=== PATIENT | male | born 1990 | race Caucasian/White ===

== ENCOUNTER 2017-09-09 20:57 | Inpatient (IN) | payer OTHER ==
[2017-09-09] MEDS ORDERED: ACETAMINOPHEN 500 MG TABLET (FP) PO STA (23:32)
--- NOTE | 2017-09-09 23:44 | PDOC ---
History of Present Illness - General Chief Complaint: Edema Stated Complaint: FOOT PAIN Time Seen by Provider: 09/09/17 23:26 - History of Present Illness Initial Comments: 09/09/17 23:45 Mr. Nubia Brewer is a 26 yo male w/ no pmh who presents c/o a 1 week history of right foot pain. He reports he was evaluated at [facility] earlier today and given PO Cephalexin 500 Q4H, but returned to ED as brother encouraged him to do so. He reports he has pain up to his right knee and altered sensation on the right lower leg as well. He also reports intermittent high fevers. Mr. 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 He further reports his brother incised the foot at 1700 this evening after betadine and alcohol prep with a scalpel in an effort to alleviate pain/pressure. Yellow pus came out at this time. The patient denies chest pain, shortness of breath, headache and dizziness. Denies chills, nausea, vomit, diarrhea and constipation. Denies dysuria, frequency, urgency and hematuria. Allergies: NKDA Past History - Past Medical History Allergies/Adverse Reactions: Allergies Allergy/AdvReac Type Severity Reaction Status Date / Time No Known Allergies Allergy Verified 09/09/17 21:11 Home Medications: Ambulatory Orders Vancomycin 1,500 mg IVPB BID@0900,2100 vial 09/17/17 - Suicide/Smoking/Psychosocial Hx Smoking History: Never smoked Have you smoked in the past 12 months: No Information on smoking cessation initiated: No Hx Alcohol Use: No Drug/Substance Use Hx: No Review of Systems - Review of Systems Comments:: 09/09/17 23:53 GENERAL/CONSTITUTIONAL: No fever or chills. No weakness. HEAD, EYES, EARS, NOSE AND THROAT: No change in vision. No ear pain or discharge. No sore throat. CARDIOVASCULAR: No chest pain or shortness of breath RESPIRATORY: No cough, wheezing, or hemoptysis. GASTROINTESTINAL: No nausea, vomiting, diarrhea or constipation. GENITOURINARY: No dysuria, frequency, or change in urination. MUSCULOSKELETAL: +Right lower extremity redness, pain, warmth, tense skin, and decreased sensation x1 week. SKIN: No rash NEUROLOGIC: No headache, vertigo, loss of consciousness, or change in strength/ sensation. ENDOCRINE: No increased thirst. No abnormal weight change HEMATOLOGIC/LYMPHATIC: No anemia, easy bleeding, or history of blood clots. ALLERGIC/IMMUNOLOGIC: No hives or skin allergy. *Physical Exam - Vital Signs Last Vital Signs Temp Pulse Resp BP Pulse Ox 101.9 F H 118 H 20 154/82 100 09/09/17 21:11 09/09/17 21:11 09/09/17 21:11 09/09/17 21:11 09/09/17 21:11 - Physical Exam Comments: 09/09/17 23:54 GENERAL: Awake, alert, and fully oriented, in no acute distress HEAD: No signs of trauma, normocephalic, atraumatic EYES: PERRLA, EOMI, sclera anicteric, conjunctiva clear ENT: Auricles normal inspection, hearing grossly normal, nares patent, oropharynx clear without exudates. Moist mucosa NECK: Normal ROM, supple, no lymphadenopathy, JVD, or masses LUNGS: No distress, speaks full sentences, clear to auscultation bilaterally HEART: Regular rate and rhythm, normal S1 and S2, no murmurs, rubs or gallops, peripheral pulses normal and equal bilaterally. ABDOMEN: Soft, nontender, normoactive bowel sounds. No guarding, no rebound. No masses EXTREMITIES: +Right lower extremity erythematous, hot, swollen, with decreased sensation on until knee. NEUROLOGICAL: Cranial nerves II through XII grossly intact. Normal speech, normal gait, no focal sensorimotor deficits SKIN: +As described, otherwise Warm, Dry, normal turgor, no rashes or lesions noted. ED Treatment Course - LABORATORY CBC & Chemistry Diagram: 09/14/17 06:45 09/17/17 06:35 Medical Decision Making - Medical Decision Making 09/09/17 23:56 Mr. Delacruz is a 26 yo male w/ no pmh who presents for evaluation of right foot infection. With elevated temperature and pulse, septic workup started. Inpatient team made aware early on as patient likely will be admitted for further workup. Patient signed out to Dr. Cohn for further care. *DC/Admit/Observation/Transfer Diagnosis at time of Disposition: Cellulitis of foot - Discharge Dispostion Disposition: HOME Condition at time of disposition: Stable - Referrals - Patient Instructions - Post Discharge Activity
[2017-09-09] MEDS ORDERED: SODIUM CHLORIDE 2,000 ML IV STA (23:45)
[2017-09-09] MEDS ORDERED: PIPERACILLIN/TAZOB 3.375 GM 3.375 GM in DEXTROSE 5%-WATER - 50 ML IVPB ONE (23:46)
[2017-09-09] MEDS ORDERED: VANCOMYCIN 1,000 MG in DEXTROSE 5%-WATER - 250 ML IVPB ONE (23:46)
[2017-09-09] MEDS ORDERED: DIPHTH,PERTUSS(ACELL),TET 0.5 ML DISP.SYRIN IM ONE (23:47)
[2017-09-10] MEDS ORDERED: CLINDAMYCIN 900 MG PREMIX IVPB 900 MG/50 ML BAG IVPB ONE ×2 (00:05→01:36)
[2017-09-10 00:08] LABS: BASO % 0.5 % (0-2.0); EOS % 3.2 % (0-4.5); HEMATOCRIT 36.2 % (35.4-49); HEMOGLOBIN 12.4 GM/dL (11.7-16.9); LYMPH % 7.8 % (8-40); MCH 30.7 pg (25.7-33.7); MCHC 34.1 g/dl (32.0-35.9); MEAN CELL VOLUME 89.9 fl (80-96); MEAN PLT VOLUME 7.6 fl (7.5-11.1); NEUT % 82.5 % (42.8-82.8); PLATELET COUNT 310 K/MM3 (134-434); RBC 4.03 M/mm3 (4.00-5.60); RDW 13.8 % (11.9-15.9); WHITE BLOOD COUNT 15.9 K/mm3 (4.0-10.0)
--- NOTE | 2017-09-10 00:14 | PDOC ---
Attending Attestation - HPI HPI: 09/10/17 00:15 The patient is a 26 year old male with no known significant PMH who presents to the emergency department with right foot pain for the past week. The patient states he went to [facility] earlier today and was sent home on PO Cephalexin 500 every 4 hours, but came to this ER due to persistent right foot pain. The patient presents with fever TMax 101.9 and swelling to the right foot. The patient endorses pain and decreased sensation up to his right knee. The patient also reports his brother made an incision to the right foot with a scalpel to alleviate some of the pain and yellow drainage was noted. The patient reports no trauma to the right foot. The patient denies chest pain, shortness of breath, headache and dizziness. Denies fever, chills, nausea, vomit, diarrhea and constipation. Denies dysuria, frequency, urgency and hematuria. Allergies: NKA Past surgical history: None reported. Social history: No reported reported alcohol, drug, or cigarette use. - Physicial Exam PE: 09/10/17 00:14 GENERAL: Awake, alert, and fully oriented, in no acute distress HEAD: No signs of trauma, normocephalic, atraumatic EYES: PERRLA, EOMI, sclera anicteric, conjunctiva clear ENT: Auricles normal inspection, hearing grossly normal, nares patent, oropharynx clear without exudates. Moist mucosa NECK: Normal ROM, supple, no lymphadenopathy, JVD, or masses LUNGS: No distress, speaks full sentences, clear to auscultation bilaterally HEART: (+) Tachycardic and regular rhythm, normal S1 and S2, no murmurs, rubs or gallops, peripheral pulses normal and equal bilaterally. ABDOMEN: Soft, nontender, normoactive bowel sounds. No guarding, no rebound. No masses EXTREMITIES: (+) Right lower extremity erythematous, hot, swollen, with decreased sensation up to the knee. NEUROLOGICAL: Cranial nerves II through XII grossly intact. Normal speech, normal gait, no focal sensorimotor deficits SKIN: +As described, otherwise Warm, Dry, normal turgor, no rashes or lesions noted. <Annmarie Flowers - Last Filed: 09/10/17 00:15> - Resident Resident Name: Quinn Mansfield - ED Attending Attestation I have performed the following: I have examined & evaluated the patient, The case was reviewed & discussed with the resident, I agree w/resident's findings & plan, Exceptions are as noted - Medical Decision Making 09/10/17 01:44 IMP rt foot cellulitis/admitted for IV antibiotics ,possible surgical consult and further evaluation <Terri Muse - Last Filed: 09/10/17 01:45>
[2017-09-10 00:15] LABS: VENOUS PC02 42.9 mmHg (38-52); VENOUS PH 7.41 (7.32-7.42); VENOUS PO2 40.5 mmHg (28-48)
[2017-09-10 00:22] LABS: INR 1.35 (0.82-1.09); PROTHROMBIN TIME (PATIENT) 15.3 SEC (9.98-11.88)
[2017-09-10 00:25] LABS: ACTIVATED PTT 34.7 SECONDS (26.9-34.4)
[2017-09-10 00:37] LABS: ALBUMIN 3.7 g/dl (3.4-5.0); ALK PHOS 87 U/L (45-117); ANION GAP 8 (8-16); BILIRUBIN,TOTAL 0.7 mg/dL (0.2-1.0); BLOOD UREA NITROGEN 8 mg/dL (7-18); CALCIUM 8.6 mg/dL (8.5-10.1); CHLORIDE 104 mmol/L (98-107); CO2 25 mmol/L (21-32); GLUCOSE,RANDOM 109 mg/dL (74-106); POTASSIUM 3.9 mmol/L (3.5-5.1); SGOT/AST 18 U/L (15-37); SGPT/ALT 24 U/L (12-78); SODIUM 137 mmol/L (136-145); TOT PROT 7.4 g/dl (6.4-8.2)
--- NOTE | 2017-09-10 00:39 | PN ---
Teaching Attending Note Name of Resident: Dc Taylor ATTENDING PHYSICIAN STATEMENT I saw and evaluated the patient. I reviewed the resident's note and discussed the case with the resident. I agree with the resident's findings and plan as documented. SUBJECTIVE: 26 yo M with no pmhx (has not seen physician in 6 years), presents with Right foot pain and swelling. Notes he was seen at [facility] and sent home PO Cephalexin. States he presented to [place] with continued pain. States he was working near [place] and cut his foot, he noticed "bubbles" near the bottom of his foot and his brother opened them with a scalpel. He noticed continued erythema, edema, and pain since that day, States he has had fevers at home and chills. No chest pain or pressure. He also noted pain has been going up his leg and he has noticed a enlarged LN on his R. inguinal area. OBJECTIVE: Physical: VS: Initial Vital Signs Temp Pulse Resp BP Pulse Ox 101.9 F H 118 H 20 154/82 100 09/09/17 21:11 09/09/17 21:11 09/09/17 21:11 09/09/17 21:11 09/09/17 21:11 GEN: NAD, Resting in bed, AA0X3 HEENT: NCAT, PERRL, throat without erythema or exudates CARD: RRR S1, S2 RESP: CTAB ABD: BSx4, NTD to palpation EXT: R foot Erythmatous and Edematous, Pulses intact, No air/crepitus, [address], L Leg - C/C/E, UE -C/C/E CBCD WBC 15.9 K/mm3 (4.0-10.0) H 09/09/17 22:49 RBC 4.03 M/mm3 (4.00-5.60) 09/09/17 22:49 Hgb 12.4 GM/dL (11.7-16.9) 09/09/17 22:49 Hct 36.2 % (35.4-49) 09/09/17 22:49 MCV 89.9 fl (80-96) 09/09/17 22:49 MCHC 34.1 g/dl (32.0-35.9) 09/09/17 22:49 RDW 13.8 % (11.9-15.9) 09/09/17 22:49 Plt Count 310 K/MM3 (134-434) 09/09/17 22:49 MPV 7.6 fl (7.5-11.1) 09/09/17 22:49 CMP Sodium 137 mmol/L (136-145) 09/09/17 22:49 Potassium 3.9 mmol/L (3.5-5.1) 09/09/17 22:49 Chloride 104 mmol/L (98-107) 09/09/17 22:49 Carbon Dioxide 25 mmol/L (21-32) 09/09/17 22:49 Anion Gap 8 (8-16) 09/09/17 22:49 BUN 8 mg/dL (7-18) 09/09/17 22:49 Creatinine 1.0 mg/dL (0.7-1.3) 09/09/17 22:49 Creat Clearance w eGFR > 60 (>60) 09/09/17 22:49 Random Glucose 109 mg/dL (74-106) H 09/09/17 22:49 Calcium 8.6 mg/dL (8.5-10.1) 09/09/17 22:49 Total Bilirubin 0.7 mg/dL (0.2-1.0) 09/09/17 22:49 AST 18 U/L (15-37) 09/09/17 22:49 ALT 24 U/L (12-78) 09/09/17 22:49 Alkaline Phosphatase 87 U/L (45-117) 09/09/17 22:49 Total Protein 7.4 g/dl (6.4-8.2) 09/09/17 22:49 Albumin 3.7 g/dl (3.4-5.0) 09/09/17 22:49 CARDIAC ENZYMES Troponin I < 0.02 ng/ml (0.00-0.05) 09/09/17 22:49 CT- No air/Abscess cellulitis ASSESSMENT AND PLAN: 26 yo M with no pmhx presents with Right foot pain and swelling after injury 1.) Sepsis due to Severe Cellulitis - [place] Cx - Repeat LA - IVF - Vanco/Zosyn - ID consult - Sx. Consult - ESR/CRP as above - LRNIC 5 - Needs US of inguinal node 2.) Dvt Ppx - [facility] in [facility]
--- NOTE | 2017-09-10 01:33 | HP ---
CHIEF COMPLAINT: R foot pain PCP: None HISTORY OF PRESENT ILLNESS: 26yo Mauritanian speaking M presented to the ER w/ 1 week of gradually worsening R foot pain, erythema, and swelling. He works for a [employer] company and cut his foot at work last week. At work, he constantly walks with wet shoes/socks and neglects foot care at home. He noticed red dots w/ pustules, which he manually popped. For the past 2 days, endorses fevers, chills, loss of appetite, n/v. Also felt an enlarged lymph node in R groin. His brother at one point took a scalpel and incised the medial plantar aspect, and it drained some serosanguinous fluid. He went to [facility] ER but left AMA. Came here after being convinced by girlfriend. In the ER, the patient was febrile to Tm 101.9 and tachy to the 110s. Sepsis protocol was initiated. Labs were notable for significant leukocytosis w/o lactic acid, and elevated ESR/CRP. CT of RLE showed suspected cellulitis w/o abscess. RLE duplex is negative. Tetanus shot given. Recent Travel: Denies PAST MEDICAL HISTORY: None, hasn't seen physician in 6 years PAST SURGICAL HISTORY: None Social History: Smoking: Denies Alcohol: Deines Drugs: Denies Allergies: No Known Allergies Allergy (Verified 09/09/17 21:11) HOME MEDICATIONS: None REVIEW OF SYSTEMS CONSTITUTIONAL: +fevers, chills, malaise, DEJON Absent: weight change HEENT: Absent: rhinorrhea, nasal congestion, throat pain, throat swelling, difficulty swallowing, mouth swelling, ear pain, eye pain, visual changes CARDIOVASCULAR: Absent: chest pain, syncope, palpitations, irregular heart rate , lightheadedness, peripheral edema RESPIRATORY: Absent: cough, shortness of breath, dyspnea with exertion, orthopnea, wheezing, stridor, hemoptysis GASTROINTESTINAL:Absent: abdominal pain, abdominal distension, nausea, vomiting , diarrhea, constipation, melena, hematochezia GENITOURINARY: Absent: dysuria, frequency, urgency, hesitancy, hematuria, flank pain, genital pain MUSCULOSKELETAL: +myalgia, arthralgia Absent: joint swelling, back pain, neck pain SKIN: Absent: rash, itching, pallor HEMATOLOGIC/IMMUNOLOGIC: Absent: easy bleeding, easy bruising, lymphadenopathy, frequent infections ENDOCRINE:Absent: unexplained weight gain, unexplained weight loss, heat intolerance, cold intolerance NEUROLOGIC: Absent: headache, focal weakness or paresthesias, dizziness, unsteady gait, seizure, mental status changes, bladder or bowel incontinence PSYCHIATRIC: Absent: anxiety, depression, suicidal or homicidal ideation, hallucinations. PHYSICAL EXAMINATION Vital Signs Period Temp Pulse Resp BP Sys/Malagon Pulse Ox Last 24 Hr 101.9 F 118 20 154/82 100 GEN: AAOx3, NAD, Not ill appearing HEENT: PERRla, EOMi CV: S1, S2, RRR LUNG: CTABL ABD: Soft, NT, ND, normoactive BS MSK: R foot - Significant erythema, warmth, and pedal edema. No crepitus. Serosanguinous drainage from medial plantar incision. Exquisitely tender throughout. No calf tenderness. Pulses intact L foot - Normal apperaing : Moderately sized tough lymph node in R inguinal area NEURO: CN 2-12 intact, no sensation or msk deficits ASSESSMENT/PLAN: 26yo Mauritanian speaking M presented to the ER w/ 1 week of gradually worsening R foot pain, erythema, and swelling, being treated for sepsis 2/2 cellulitis. # Sepsis 2/2 RLE Cellulitis -- Likely obtained from direct innoculation from cut at work. Though there is no abscess on CT, will request gen surg opinion. IV Vanc/Zosyn with ID consult. IVF. F/u Bcx. MRI due to ESR/CRP. # FEN/PPx -- IVF 100. Reg diet. HSQ TID # Dispo -- Admit to med/surg Case d/w Dr Briones & Dr Renetta Taylor MD - pGY1 Night Charge Entry Visit type - Emergency Visit Emergency Visit: Yes ED Registration Date: 09/10/17 Care time: The patient presented to the Emergency Department on the above date and was hospitalized for further evaluation of their emergent condition. - New Patient This patient is new to me today: Yes Date on this admission: 09/10/17 - Critical Care Critical Care patient: No Hospitalist Screening - Colonoscopy Questionnaire Colonoscopy Questionnaire: Colonoscopy Questionnaire - Patient: 50 - 75 years old and never had a screening colonoscopy: Unknown History of colon or rectal polyps, or CA: Unknown History of IBD, Crohn's disease or UC: Unknown History of abdominal radiation therapy as a child: Unknown - Relative: 1 with colon or rectal CA, or polyps at age 60 or younger: Unknown Colon or rectal CA diagnosed at age 45 or younger: Unknown Multiple relatives with colon or rectal CA: Unknown - Outcome: Screening Result: Negative Screen
[2017-09-10] MEDS ORDERED: ACETAMINOPHEN 325 MG TABLET (FP) ONE (01:35)
[2017-09-10] MEDS ORDERED: PIPERACILLIN/TAZOB 3.375 GM 3.375 GM/50 ML BAG IVPB ONE (01:36)
[2017-09-10] MEDS ORDERED: morphine SULFATE 4 MG/ML VIAL IVPUSH PRN ×2 (01:55→11:15)
[2017-09-10 02:04] LABS: URINE APPEARANCE CLEAR; URINE BILIRUBIN NEGATIVE (<2.0 mg/dL); URINE COLOR LTYELLOW; URINE GLUCOSE (UA) NEGATIVE (NEGATIVE); URINE KETONE NEGATIVE (NEGATIVE); URINE LEUK ESTERASE NEGATIVE (NEGATIVE); URINE NITRITE NEGATIVE (NEGATIVE); URINE PROTEIN NEGATIVE (NEGATIVE)
[2017-09-10] MEDS ORDERED: CLINDAMYCIN 900 MG PREMIX IVPB 900 MG/50 ML BAG IVPB SCH ×2 (03:00→06:00)
[2017-09-10] MEDS: SODIUM CHLORIDE 1,000 ML IV SCH ×2 (04:32→14:22)
[2017-09-10] MEDS: HEPARIN NA (PORCINE) 5,000 UNITS/ML 1ML VIAL SQ SCH ×3 (05:32→22:29)
[2017-09-10 05:47] VITALS: BMI 30.9
[2017-09-10 07:07] LABS: HEMATOCRIT 35.8 % (35.4-49); MCH 30.5 pg (25.7-33.7); MCHC 33.5 g/dl (32.0-35.9); MEAN CELL VOLUME 91.2 fl (80-96); MEAN PLT VOLUME 7.2 fl (7.5-11.1); PLATELET COUNT 286 K/MM3 (134-434); RBC 3.93 M/mm3 (4.00-5.60); RDW 13.6 % (11.9-15.9); WHITE BLOOD COUNT 14.8 K/mm3 (4.0-10.0)
[2017-09-10 07:32] LABS: ALBUMIN 3.1 g/dl (3.4-5.0); ANION GAP 5 (8-16); BLOOD UREA NITROGEN 6 mg/dL (7-18); CALCIUM 7.7 mg/dL (8.5-10.1); CHLORIDE 108 mmol/L (98-107); CO2 26 mmol/L (21-32); CREATININE 0.8 mg/dL (0.7-1.3); GLUCOSE,RANDOM 104 mg/dL (74-106); MAGNESIUM 2.4 mg/dL (1.8-2.4); PHOSPHOROUS 2.8 mg/dL (2.5-4.9); POTASSIUM 3.6 mmol/L (3.5-5.1); SGOT/AST 15 U/L (15-37); SGPT/ALT 21 U/L (12-78); SODIUM 139 mmol/L (136-145)
[2017-09-10 07:34] LABS: ALK PHOS 78 U/L (45-117); BILIRUBIN,TOTAL 0.7 mg/dL (0.2-1.0); TOT PROT 6.6 g/dl (6.4-8.2)
--- NOTE | 2017-09-10 08:08 | PN ---
Progress Note (short form) - Note Progress Note: ID THis 26 year old [place] man living in [place] for six years presents with diffuse swelling of the right foot pain redness began last week. Starated as 2 pimples on the bottom of his foot. He denies any recall of trauma. 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 pets or history of DM or other medical illness His brother attempted to drain the plantar aspect of this foot with pus obtained. Selected Entries 09/09/17 21:11 Temperature 101.9 F H Pulse Rate 118 H Respiratory 20 Rate Blood Pressure 154/82 O2 Sat by Pulse 100 Oximetry (%) Weight 200 lb Right foot diffusely swollen and red. Bottom of his foot is very tender. Linear opening noted with pus Microbiology Laboratory Tests 09/09/17 09/09/17 09/09/17 22:49 22:49 22:49 WBC 15.9 H Hgb 12.4 Plt Count 310 ESR 58 H Total Bilirubin 0.7 AST 18 ALT 24 Alkaline Phosphatase 87 C-Reactive Protein 09/09/17 23:45 WBC Hgb Plt Count ESR Total Bilirubin AST ALT Alkaline Phosphatase C-Reactive Protein 20.9 H Assessment Suspect underlyng abscess right foot with secondary cellulitis along with fever and leukocytosis Criteria for sepsis GIven grassy outdoor exposure consider water born organisms in addition to usual staph and strep. Plan Discussed with Dr Aldana regarding need for I&D OR Vancomycin and Zosyn 1.25 grs and 4.5 grs respectively HIV test Sam GALEANA Problem List - Problems (1) Cellulitis of foot Code(s): L03.119 - CELLULITIS OF UNSPECIFIED PART OF LIMB (2) Foot abscess Code(s): L02.619 - CUTANEOUS ABSCESS OF UNSPECIFIED FOOT
[2017-09-10] MEDS ORDERED: PIPERACILLIN/TAZOBACTAM 4.5 GM VIAL IVPB ONE ×2 (09:10→17:52)
[2017-09-10] MEDS ORDERED: DEXTROSE 5%-WATER 100 ML IVPB ONE ×2 (09:10→17:53)
[2017-09-10] MEDS: PIPERACILLIN/TAZOB 4.5 GM 4.5 GM in DEXTROSE 5%-WATER 100 ML IVPB SCH ×2 (09:13→17:58)
[2017-09-10] MEDS ORDERED: PIPERACILLIN/TAZOB 3.375 GM 3.375 GM in DEXTROSE 5%-WATER - 50 ML IVPB ONE (10:00)
[2017-09-10] MEDS ORDERED: FLU VACCINE QUAD 60 MCG/0.5 ML (MDV 17-18) IM ONE (11:00)
--- NOTE | 2017-09-10 11:00 | CONSULT ---
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 Patient notes trauma to the right foot when a sprinkler cut his foot. His brother also used a scalpel to "clean out the area". He currently has low grade temp to 99 F. PMHx: denies Meds: noted ALL: NKMA NADIYA: Pedal pulses palpable, TG warm-warmer R foot, CFT brisk to all toes. There is a transverse self-created wound on the plantar sub-metatarsal region, extending from 1st-3rd metatarsals. There is purulent drainage expressed from the sub- first metatarsal area. There is exquisite tenderness to palpation. There is significant edema and cellulitis to the forefoot both dorsally and plantarly. There is no soft tissue crepitus. WBC: 14.8 ESR: 58 Blood Cx: pending CT R foot: subcutaneous edema without evidence of collection Imp: 26 year old M with R foot cellulitis, suspected abscess 1. IV abx 2. We need further imaging, such as xray right foot to evaluate for subcutaneous emphysema and MRI with contrast to get a better picture of abscess collection. 3. Clearly needs I&D R foot. NPO at midnight for surgery tomorrow afternoon. 4. Pain control. 5. Will follow. Thank you for the courtesy of this consultation. Arnulfo Prince DPM
--- NOTE | 2017-09-10 11:05 | EKG ---
Test Reason : Blood Pressure : / mmHG Vent. Rate : 106 BPM Atrial Rate : 106 BPM P-R Int : 130 ms QRS Dur : 086 ms QT Int : 338 ms P-R-T Axes : 060 048 008 degrees QTc Int : 448 ms SINUS TACHYCARDIA OTHERWISE NORMAL ECG NO PREVIOUS ECGS AVAILABLE Confirmed by ANABELLA FRAGA MD ([id number]) on 09/10/2017 11:04:51 AM Referred By: Confirmed By:ANABELLA FRAGA MD
--- NOTE | 2017-09-10 12:27 | PN ---
Teaching Attending Note Name of Resident: Dana Haywood ATTENDING PHYSICIAN STATEMENT I saw and evaluated the patient. I reviewed the resident's note and discussed the case with the resident. I agree with the resident's findings and plan as documented. SUBJECTIVE:c/o R foot pain which improves with pain medication. noted swelling on Sunday. his brother used a knife to incise base to remove eschar. deneis Cp,SOB< fever, chills, N/V/C/D OBJECTIVE: Last Vital Signs Temp Pulse Resp BP Pulse Ox 99 F 88 16 139/76 96 09/10/17 09:06 09/10/17 09:06 09/10/17 09:06 09/10/17 09:06 09/10/17 01:13 General NAD CV S1 S2 RRR no murmur/rub/gallop Lungs CTA B/L no wheezing/rales/rhonchi Abdomen soft NT/ND Extremities R foot with swelling and erythema to dorsum of foot. unable to palpate DP pulse. laceration with some pus drainage in between 1st and 2nd digit plantar of the foot with transverse laceration with pus drainage from superior aspect. area is tender and warm with diffuse swelling to the plantar region. no crepitus ASSESSMENT AND PLAN: 26yo M with no PMH presented to the ER with R foot swelling and pain 1. Sepsis due to R foot cellulitis- with possible abscess formation. CT scan not showing however was done without contrast. will obtain MRI with contrast to further evaluate and r/o OM. NPO tonight for possible OR tomorrow for I&D. on Vanco/zosyn day 2. pain control. ID, surgery and podiatry on board. check HIV status (pt consents). A1c WNL, Tdap given in the ER 2. DVT ppx- hep sq
[2017-09-10] MEDS ORDERED: VANCOMYCIN 1,500 MG in DEXTROSE 5%-WATER - 500 ML IVPB ONE (16:00)
--- NOTE | 2017-09-10 16:34 | PN ---
Physical Exam: SUBJECTIVE: Patient seen and examined. States pain well controlled with medication; no fever, chills, n/v, chest pain, sob. OBJECTIVE: Vital Signs Period Temp Pulse Resp BP Sys/Malagon Pulse Ox Last 24 Hr 97.9 F-101.9 F 77-118 16-20 125-154/55-82 96-100 GENERAL: aaox3, nad HEENT:sclera anicteric, conjunctiva clear, mmm NECK: supple, no cervical LAD LUNGS: CTAB HEART: rrr, normal s1/s2, no m/r/g EXTREMITIES: R foot dorsum swollen, erythematous, warm, ttp; horizontal transverse incision on plantar aspect with pus draining; PT pulse palpated; L foot 2+ DP/PT pulses, wwp CBC, BMP 09/10/17 05:50 09/10/17 05:50 Hepatic Panel Total Bilirubin 0.7 mg/dL (0.2-1.0) 09/10/17 05:50 AST 15 U/L (15-37) 09/10/17 05:50 ALT 21 U/L (12-78) 09/10/17 05:50 Alkaline Phosphatase 78 U/L (45-117) 09/10/17 05:50 Albumin 3.1 g/dl (3.4-5.0) L 09/10/17 05:50 Active Medications Heparin Sodium (Porcine) (Heparin -) 5,000 unit SQ TID ENEDINA Last Admin: 09/10/17 14:21 Dose: 5,000 unit Sodium Chloride (Normal Saline -) 1,000 mls @ 125 mls/hr IV [facility] Last Admin: 09/10/17 14:22 Dose: 125 mls/hr Vancomycin HCl 1,250 mg/ (Dextrose) 250 mls @ 166.667 mls/hr IVPB 0400,1600 ENEDINA PRN Reason: Protocol Last Admin: 09/10/17 16:38 Dose: 166.667 mls/hr Piperacillin Sod/Tazobactam (Sod 4.5 gm/ Dextrose) 100 mls @ 200 mls/hr IVPB Q8H-IV ENEDINA PRN Reason: Protocol Last Admin: 09/10/17 17:58 Dose: 200 mls/hr Morphine Sulfate (Morphine Sulfate) 4 mg IVPUSH Q6H PRN PRN Reason: PAIN LEVEL 6-10 Last Admin: 09/10/17 14:22 Dose: 4 mg ASSESSMENT/PLAN: 26yo Estonian speaking M who p/w 1xwk worsening R foot pain, erythema, and swelling, admitted for sepsis 2/2 cellulitis. # Sepsis 2/2 RLE cellulitis, possibly osteomyelitis, likely from occupation; s/ p Tdap in ED, Alc wnl (5.4%) -ID consulted, c/w IV Vanc/Zosyn, Day 2 -IVF -F/u BCx -MRI to r/o osteo (elevated ESR/CRP); assess for drainable collection -General surgery consulted -Dr. Prince (podiatry) consulted, make take to OR tomorrow for I&D -f/u HIV (patient consented) -pain control morpine 4mg IV Q6H # FEN/PPx --IVF 100. Reg diet. HSQ TID #Dispo: m/s Full code Visit type - Emergency Visit Emergency Visit: No - New Patient This patient is new to me today: Yes Date on this admission: 09/10/17 - Critical Care Critical Care patient: No
[2017-09-10] MEDS: VANCOMYCIN 1,250 MG in DEXTROSE 5%-WATER - 250 ML IVPB SCH (16:38)
[2017-09-11] MEDS ORDERED: PIPERACILLIN/TAZOBACTAM 4.5 GM VIAL IVPB ONE ×3 (01:03→18:32)
[2017-09-11] MEDS ORDERED: DEXTROSE 5%-WATER 100 ML IVPB ONE ×3 (01:03→18:33)
[2017-09-11] MEDS: PIPERACILLIN/TAZOB 4.5 GM 4.5 GM in DEXTROSE 5%-WATER 100 ML IVPB SCH ×3 (01:05→18:38)
[2017-09-11] MEDS: VANCOMYCIN 1,250 MG in DEXTROSE 5%-WATER - 250 ML IVPB SCH ×2 (03:17→18:07)
[2017-09-11] MEDS: SODIUM CHLORIDE 1,000 ML IV SCH ×2 (03:18→13:18)
[2017-09-11] MEDS: HEPARIN NA (PORCINE) 5,000 UNITS/ML 1ML VIAL SQ SCH ×2 (06:19→13:22)
--- NOTE | 2017-09-11 07:38 | PN ---
Physical Exam: SUBJECTIVE: Patient seen and examined. No fever or chills. Pain well controlled. Eating and voiding well. OBJECTIVE: Vital Signs Period Temp Pulse Resp BP Sys/Malagon Pulse Ox Last 24 Hr 98.8 F-100.7 F 84-105 16-20 119-141/57-76 96-96 GENERAL: aaox3, nad HEENT:sclera anicteric, conjunctiva clear, mmm NECK: supple, no cervical LAD LUNGS: CTAB HEART: rrr, normal s1/s2, no m/r/g EXTREMITIES: R foot dorsum swollen, erythematous, warm, ttp; horizontal transverse incision on plantar aspect with pus draining; PT pulse palpated; L foot 2+ DP/PT pulses, wwp CBC, BMP 09/11/17 07:43 09/11/17 07:43 Hepatic Panel Total Bilirubin 0.5 mg/dL (0.2-1.0) D 09/11/17 07:43 AST 15 U/L (15-37) 09/11/17 07:43 ALT 23 U/L (12-78) 09/11/17 07:43 Alkaline Phosphatase 79 U/L (45-117) 09/11/17 07:43 Albumin 3.3 g/dl (3.4-5.0) L 09/11/17 07:43 Microbiology 09/10/17 09:30 Foot - Right Plantar Gram Stain - Final 09/10/17 09:30 Foot - Right Plantar Wound Culture - Preliminary Presumptive Mrsa (Pbp2a Pos) 09/09/17 22:49 Blood - Peripheral Venous Blood Culture - Preliminary NO GROWTH OBTAINED AFTER 24 HOURS, INCUBATION TO CONTINUE FOR 4 DAYS. 09/09/17 22:49 Blood - Peripheral Venous Blood Culture - Preliminary NO GROWTH OBTAINED AFTER 24 HOURS, INCUBATION TO CONTINUE FOR 4 DAYS. Active Medications Enoxaparin Sodium (Lovenox -) 40 mg SQ DAILY ENEDINA Dextrose/Sodium Chloride (D5-Ns -) 1,000 mls @ 83 mls/hr IV ASDIR ENEDINA Last Admin: 09/11/17 18:08 Dose: Not Given Vancomycin HCl 1,250 mg/ (Dextrose) 250 mls @ 166.667 mls/hr IVPB 0400,1600 ENEDINA PRN Reason: Protocol Piperacillin Sod/Tazobactam (Sod 4.5 gm/ Dextrose) 100 mls @ 200 mls/hr IVPB Q8H-IV ENEDINA PRN Reason: Protocol Last Admin: 09/11/17 18:38 Dose: 200 mls/hr Ketorolac Tromethamine (Toradol) 10 mg PO Q6H PRN PRN Reason: PAIN LEVEL 1-5 Stop: 09/16/17 15:17 Ondansetron HCl (Zofran Injection) 4 mg IVPUSH Q6H PRN PRN Reason: NAUSEA AND/OR VOMITING Oxycodone HCl (Roxicodone -) 10 mg PO Q4H PRN PRN Reason: PAIN LEVEL 6-10 Stop: 09/12/17 16:46 ASSESSMENT/PLAN: 26yo Gibraltarian speaking M who p/w 1xwk worsening R foot pain, erythema, and swelling, admitted for sepsis 2/2 cellulitis. # Sepsis 2/2 RLE cellulitis, MRI revealed collection and possible early osteomyelitis; s/p Tdap in ED, Alc wnl (5.4%), HIV neg -ID consulted, c/w IV Vanc/Zosyn, Day 3 (Vanc trough today) -IVF -F/u BCx -General surgery consulted -Dr. Prince (podiatry) consulted, going to OR for I&D -pain control morpine 4mg IV Q6H # FEN/PPx -IVFs, will d/c after OR -lytes wnl -Regular diet after OR -Lovenox 40mg SQ #Dispo: m/s Full code Visit type - Emergency Visit Emergency Visit: No - New Patient This patient is new to me today: No - Critical Care Critical Care patient: No
[2017-09-11 08:09] LABS: BASO % 0.7 % (0-2.0); EOS % 11.3 % (0-4.5); HEMATOCRIT 37.4 % (35.4-49); HEMOGLOBIN 12.6 GM/dL (11.7-16.9); LYMPH % 15.9 % (8-40); MCH 30.7 pg (25.7-33.7); MCHC 33.7 g/dl (32.0-35.9); MEAN CELL VOLUME 91.2 fl (80-96); MEAN PLT VOLUME 7.4 fl (7.5-11.1); MONO % 6.4 % (3.8-10.2); NEUT % 65.7 % (42.8-82.8); PLATELET COUNT 352 K/MM3 (134-434); RDW 13.8 % (11.9-15.9); WHITE BLOOD COUNT 9.7 K/mm3 (4.0-10.0)
[2017-09-11 08:27] LABS: ALBUMIN 3.3 g/dl (3.4-5.0); ANION GAP 11 (8-16); BLOOD UREA NITROGEN 7 mg/dL (7-18); CALCIUM 8.9 mg/dL (8.5-10.1); CHLORIDE 105 mmol/L (98-107); CO2 25 mmol/L (21-32); GLUCOSE,RANDOM 105 mg/dL (74-106); POTASSIUM 4.1 mmol/L (3.5-5.1); SGOT/AST 15 U/L (15-37); SGPT/ALT 23 U/L (12-78); SODIUM 141 mmol/L (136-145)
--- NOTE | 2017-09-11 08:27 | MSN ---
Progress Note (short form) - Note Progress Note: SUBJECTIVE: Patient seen and examined this morning. Overnight, afebrile and vital signs stable. NPO since mid-night for OR at 2:[address] Prince. Pain in the right foot is well controlled. The pain is relieved with elevation and exacerbated by being placed in a dependent position. The wound along the plantar aspect of the right foot is uncovered with small amount of dry blood surrounding. He admits to decreased sensation in the right foot extending into the right lower leg and decreased active range of motion limited by pain and surrounding edema. Patient admits to non-productive cough. He denies fevers since starting the IV antibiotics. He denies nausea/vomiting, SOB, chest pain or dysuria. OBJECTIVE: Vital Signs Period Temp Pulse Resp BP Sys/Malagon Pulse Ox Last 24 Hr 98.0 F-100.7 F 73-105 16-20 119-141/57-76 96-96 GENERAL: Young male in no acute distress lying in bed with right foot elevated uncovered resting on a chux HEAD: Normal without evidence of trauma EYES: EOMI, anicteric, no scleral pallor or injection MOUTH: Moist mucous membranes, no lesions or plaques NECK: Supple, no lymphadenopathy, trachea midline CARDIOVASCULAR: No JVD, tachycardic at 100 bpm S1/S2, no murmur, rubs or gallops LUNGS: Clear to auscultation b/l, breath sounds equal, no wheezes or crackles ABDOMEN: Normoactive bowel sounds, soft, non-distended, non-tender, no rebound or guarding EXTREMITIES: LLE and left foot- Normal, no skin or nail abnormalities, full active range of motion, 5/5 muscle strength in dorsiflexion/plantar flexion Right foot- Laceration between 1st and 2nd toes with small amount of dried blood; Transverse linear laceration about 3 inches on plantar aspect of foot with scant amount of serosangenous material present; dorsal edema and erythema extending to ankle; Tender to palpation; range of motion limited by pain and edema; 4/5 muscle strength in dorsiflexion/plantar flexion; 4/5 muscle strength in toe flexion/extension NEURO: Cranial nerves II-XII grossly intact, normal speech, gait not observed PSYCH: Pleasant affect, alert and oriented x 3 Laboratory Results - last 24 hr 09/10/17 09/11/1718 13:10 07:43 07:43 WBC 9.7 D RBC 4.10 Hgb 12.6 Hct 37.4 MCV 91.2 MCH 30.7 MCHC 33.7 RDW 13.8 Plt Count 352 D MPV 7.4 L Neutrophils % 65.7 D Lymphocytes % 15.9 D Monocytes % 6.4 Eosinophils % 11.3 H D Basophils % 0.7 Sodium 141 Potassium 4.1 Chloride 105 Carbon Dioxide 25 Anion Gap 11 BUN 7 Creatinine 1.0 D Creat Clearance w eGFR > 60 Random Glucose 105 Calcium 8.9 Total Bilirubin 0.5 D AST 15 ALT 23 Alkaline Phosphatase 79 Total Protein 7.1 Albumin 3.3 L HIV 1&2 Ag/Ab, 4th Gen Non reactive Current Medications Generic Name Dose Route Start Last Admin Trade Name Freq PRN Reason Stop Dose Admin Heparin Sodium (Porcine) 5,000 unit 09/10/17 06:00 09/11/17 06:19 Heparin - SQ Not Given TID ENEDINA Sodium Chloride 1,000 mls @ 125 mls/hr 09/10/17 01:45 09/11/17 03:18 Normal Saline - IV 125 mls/hr ASDIR ENEDINA Administration Vancomycin HCl 1,250 mg/ 250 mls @ 166.667 mls/hr 09/10/17 16:00 09/11/17 03: 17 Dextrose IVPB 166.667 mls/hr 0400,1600 ENEDINA Administration Protocol Piperacillin Sod/Tazobactam 100 mls @ 200 mls/hr 09/10/17 10:00 09/11/17 10: 07 Sod 4.5 gm/ Dextrose IVPB 200 mls/hr Q8H-IV ENEDINA Administration Protocol Morphine Sulfate 4 mg 09/10/17 11:15 09/10/17 14:22 Morphine Sulfate IVPUSH 4 mg Q6H PRN Administration PAIN LEVEL 6-10 IMAGING: EKG- Sinus tachycardia CXR- No acute pathology, large heart LE MRI- Soft tissue edema, fluid collection along plantar aspect of proximal phalanx to dorsal tissue, bone marrow edema of 2nd toe, questionable for osteomyeltits LE CT-Subcutaneous edema without bony abnormality Doppler U/S LE- No evidence of DVT ASSESSMENT/PLAN: 26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 On admission patient with leukocytosis (15.9), tachycardic (111 bpm), and low- grade fever (100.7). Patient has improved. Leukocytosis is resolved (WBC 9.7) and was afebrile overnight although he remains tachycardic (105 bpm). -Per ID, patient is on day 3 of IV Vancomycin 1250 mg Q12H and IV Zosyn 4.5 gm Q8H -Vancomycin trough level ordered for this afternoon -MRI demonstrated questionable osteomyelitis; Patient has elevated ESR (58) and CRP (20.9); consider need for long-term ABX -Received Tdap in the ER -Negative UA; blood culture no growth after 24 hrs. -Wound culture positive for presumptive MRSA; contact precautions in place -Dr. Cotton is planning to take the patient to the OR at 2:30 pm for I and D; patient is NPO since midnight -Work-up for co-morbid conditions; HIV negative; [id number]% -Pain well-controlled with morphine 4 mg IV Q6H PRN; patient has required 1 dose in last 24 hrs. #FEN -IV D5 1/2 NS at 125 ml/hr as patient is NPO for surgery this afternoon -Resume normal diet after surgery #DVT prophylaxis -Heparin held for surgery this am. -Resume DVT prophylaxis with Lovenox 40 u SQ QD following procedure
[2017-09-11 08:30] LABS: ALK PHOS 79 U/L (45-117); BILIRUBIN,TOTAL 0.5 mg/dL (0.2-1.0); TOT PROT 7.1 g/dl (6.4-8.2)
--- NOTE | 2017-09-11 08:36 | PN ---
Teaching Attending Note Name of Resident: Dana Haywood ATTENDING PHYSICIAN STATEMENT I saw and evaluated the patient. I reviewed the resident's note and discussed the case with the resident. I agree with the resident's findings and plan as documented with exceptions below. SUBJECTIVE: Patient seen and examined. pain well controlled, discussing surgery with Dr. Prince OBJECTIVE: Vital Signs Period Temp Pulse Resp BP Sys/Amlagon Pulse Ox Last 24 Hr 98.0 F-100.7 F 73-105 16-20 119-141/57-76 96-96 Intake & Output 09/08/17 09/09/17 09/10/17 09/11/17 23:59 23:59 23:59 23:59 Intake Total 3760 1675 Output Total 3500 600 Balance 260 1075 Weight 200 lb 191 lb 7 oz General; lying in bed in no acute distress Extremities:right foot swelling with erythema tenderness on dorsum, positive swelling with erythema/tenderness on plantar foot with horizontal laceration with dried blood and mild serosanguinous discharge expressed with tenderness, well perfused. Home Medication List Medication Instructions Recorded Confirmed Type NK [No Known Home Medication] 09/11/17 09/11/17 History Active Medications Generic Name Dose Route Start Last Admin Trade Name Freq PRN Reason Stop Dose Admin Heparin Sodium (Porcine) 5,000 unit 09/10/17 06:00 09/11/17 06:19 Heparin - SQ Not Given TID ENEDINA Sodium Chloride 1,000 mls @ 125 mls/hr 09/10/17 01:45 09/11/17 03:18 Normal Saline - IV 125 mls/hr ASDIR ENEDINA Administration Vancomycin HCl 1,250 mg/ 250 mls @ 166.667 mls/hr 09/10/17 16:00 09/11/17 03: 17 Dextrose IVPB 166.667 mls/hr 0400,1600 ENEDINA Administration Protocol Piperacillin Sod/Tazobactam 100 mls @ 200 mls/hr 09/10/17 10:00 09/11/17 01: 05 Sod 4.5 gm/ Dextrose IVPB 200 mls/hr Q8H-IV ENEDINA Administration Protocol Morphine Sulfate 4 mg 09/10/17 11:15 09/10/17 14:22 Morphine Sulfate IVPUSH 4 mg Q6H PRN Administration PAIN LEVEL 6-10 Laboratory Results - last 24 hr 04/09/11/17 09/11/17 13:10 07:43 07:43 WBC 9.7 D RBC 4.10 Hgb 12.6 Hct 37.4 MCV 91.2 MCH 30.7 MCHC 33.7 RDW 13.8 Plt Count 352 D MPV 7.4 L Neutrophils % 65.7 D Lymphocytes % 15.9 D Monocytes % 6.4 Eosinophils % 11.3 H D Basophils % 0.7 Sodium 141 Potassium 4.1 Chloride 105 Carbon Dioxide 25 Anion Gap 11 BUN 7 Creatinine 1.0 D Creat Clearance w eGFR > 60 Random Glucose 105 Calcium 8.9 Total Bilirubin 0.5 D AST 15 ALT 23 Alkaline Phosphatase 79 Total Protein 7.1 Albumin 3.3 L HIV 1&2 Ag/Ab, 4th Gen Non reactive Microbiology 09/09/17 22:49 Blood - Peripheral Venous Blood Culture - Preliminary NO GROWTH OBTAINED AFTER 24 HOURS, INCUBATION TO CONTINUE FOR 4 DAYS. 09/09/17 22:49 Blood - Peripheral Venous Blood Culture - Preliminary NO GROWTH OBTAINED AFTER 24 HOURS, INCUBATION TO CONTINUE FOR 4 DAYS. 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 ID/podiatry input appreciated. for I&D today. WOund cultures with MRSA, monitor vancomycin levels. 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 discuss with ID and social work. HIV neg, A1c 5.4. Tdap given in Ed. pain control morphine/tylenol. DVTPPx heparin, change to lovenox post operatively. dispo pending above and clinical improvement.
--- NOTE | 2017-09-11 10:08 | PN ---
Progress Note (short form) - Note Progress Note: Attending Surgeon Patient being seen by Dr. Prince of Podiatry and all care deferred to him and PC Team. Bentley Aldana Md FACS
[2017-09-11] MEDS ORDERED: DEXTROSE 5%-NORMAL SALINE 1,000 ML IV SCH ×2 (14:15→17:26)
[2017-09-11] MEDS ORDERED: KETOROLAC TROMETHAMINE 10 MG TABLET PO PRN ×2 (15:18→17:26)
--- NOTE | 2017-09-11 15:26 | PN ---
Progress Note, Physician History of Present Illness: C/O R foot pain with movement Afebrile WBC improved Wound c/s prelim MRSA - Current Medication List Current Medications: Active Medications Enoxaparin Sodium (Lovenox -) 40 mg SQ DAILY ENEDINA Vancomycin HCl 1,250 mg/ (Dextrose) 250 mls @ 166.667 mls/hr IVPB 0400,1600 ENEDINA PRN Reason: Protocol Last Admin: 09/11/17 03:17 Dose: 166.667 mls/hr Piperacillin Sod/Tazobactam (Sod 4.5 gm/ Dextrose) 100 mls @ 200 mls/hr IVPB Q8H-IV ENEDINA PRN Reason: Protocol Last Admin: 09/11/17 10:07 Dose: 200 mls/hr Dextrose/Sodium Chloride (D5-Ns -) 1,000 mls @ 83 mls/hr IV ASDIR ENEDINA Ketorolac Tromethamine (Toradol) 10 mg PO Q6H PRN PRN Reason: PAIN LEVEL 6-10 Stop: 09/16/17 15:17 - Objective Vital Signs: Vital Signs Temperature 98.3 F 09/11/17 08:49 Pulse Rate 79 09/11/17 08:49 Respiratory Rate 18 09/11/17 08:49 Blood Pressure 129/72 09/11/17 08:49 O2 Sat by Pulse Oximetry (%) 98 09/11/17 09:00 Constitutional: Yes: No Distress Cardiovascular: Yes: Regular Rate and Rhythm, S1, S2 Respiratory: Yes: CTA Bilaterally Gastrointestinal: Yes: Normal Bowel Sounds, Soft. No: Tenderness Extremities: Yes: Other (R foot swollen, erythematous, warm) Labs: CBC, BMP 09/11/17 07:43 09/11/17 07:43 INR, PTT INR 1.35 (0.82-1.09) H 09/09/17 22:49 Assessment/Plan R foot cellulitis R/O abscess For OR today Continue vancomycin/ zosyn
[2017-09-11] MEDS ORDERED: MIDAZOLAM HCL 2 MG/2 ML SINGLE DOSE VIAL ONE (15:44)
[2017-09-11] MEDS ORDERED: LIDOCAINE HCL/PF 2% SDV 5ML VIAL ONE (15:53)
[2017-09-11] MEDS ORDERED: DEXAMETHASONE SOD PHOSPHATE 4 MG/1 ML VIAL ONE (15:53)
[2017-09-11] MEDS ORDERED: VANCOMYCIN 1,000 MG VIAL (RESTRICTED TO ID ONLY) ONE (15:54)
[2017-09-11] MEDS ORDERED: PROPOFOL 20 ML ONE (15:55)
[2017-09-11] MEDS ORDERED: LIDOCAINE HCL 2% (20ML MULTI-DOSE VIAL) NR ONE (15:58)
[2017-09-11] MEDS ORDERED: ONDANSETRON 4 MG/2 ML VIAL IVPUSH PRN (16:47)
[2017-09-11] MEDS ORDERED: oxyCODONE HCL 5 MG TABLET PO PRN (16:47)
[2017-09-11] MEDS ORDERED: LACTATED RINGERS SOLUTION 1,000 ML IV SCH (17:00)
--- NOTE | 2017-09-11 17:52 | OP ---
DATE OF OPERATION: 09/11/2017 PREOPERATIVE DIAGNOSIS: Right foot abscess and cellulitis. POSTOPERATIVE DIAGNOSIS: Right foot abscess and cellulitis. PROCEDURE: Right foot incision and drainage. SURGEON: Damien Prince D.P.M. ULTRASOUND SPEC: Isidro Lunsford, PGY 3 [facility] ANESTHESIA: General. HEMOSTASIS: Surgical dissection. COMPLICATIONS: None. DESCRIPTION OF PROCEDURE: The patient was brought to the operating room and placed on the operating table in the supine position. Following the induction of general anesthesia, local anesthesia was achieved, utilizing 20 mL of 2% lidocaine plain. The right foot was scrubbed, prepped, and draped in the usual sterile fashion. Attention was directed to the right foot, where a first interspace ulcer as well as the sub-first metatarsal ulcer and tracking into the inner space was appreciated. I began by performing a 2.5 curvilinear incision over the dorsal mid foot. Of note, there was tracking from the first interspace dorsally and laterally into the mid foot. The incision was carefully placed over that area of tracking. Upon incision, there was purulent material expressed in the wound. A deep wound culture was obtained. All loculations were palpated and released. The abscess was decompressed using a sterile 15 blade and a curved hemostat. Of note, the infection was down to capsule, and therefore concern for osteomyelitis is significant. The surgical site was first irrigated with a bulb syringe consisting of sterile saline and bacitracin, then the surgical site was irrigated copiously in a pulse lavage fashion consisting of 1000 L of normal saline. Following the conclusion of the procedure, the surgical site was packed from the dorsal incision to the first interspace, consisting of 1/4 inch iodoform packing. A dorsal incision was loosely coapted with 3-0 nylon. The sub-first metatarsal ulcer was loosely coapted with 3-0 nylon. The first interspace was packed open. Following the conclusion of the procedure, the surgical site was covered with Xeroform and a sterile compressive dressing was applied to the right foot consisting of sterile gauze, Dirk, Kerlix, and an Vahid wrap. Patient tolerated the procedure and anesthesia well without complications. He was transferred from the operating room to the recovery unit with vital signs stable and neurovasculature intact to the right foot. CHANEL DUEÑAS/[id number] cc: [facility] SADAF
[2017-09-12] MEDS ORDERED: PIPERACILLIN/TAZOBACTAM 4.5 GM VIAL IVPB ONE ×3 (01:08→17:26)
[2017-09-12] MEDS ORDERED: DEXTROSE 5%-WATER 100 ML IVPB ONE ×3 (01:09→17:26)
[2017-09-12] MEDS: PIPERACILLIN/TAZOB 4.5 GM 4.5 GM in DEXTROSE 5%-WATER 100 ML IVPB SCH ×3 (02:53→18:02)
[2017-09-12] MEDS: VANCOMYCIN 1,250 MG in DEXTROSE 5%-WATER - 250 ML IVPB SCH ×2 (03:31→16:33)
[2017-09-12 07:41] LABS: BASO % 0.5 % (0-2.0); EOS % 2.1 % (0-4.5); HEMATOCRIT 37.3 % (35.4-49); HEMOGLOBIN 12.3 GM/dL (11.7-16.9); LYMPH % 13.2 % (8-40); MCH 30.1 pg (25.7-33.7); MEAN CELL VOLUME 91.3 fl (80-96); MEAN PLT VOLUME 7.4 fl (7.5-11.1); MONO % 5.8 % (3.8-10.2); NEUT % 78.4 % (42.8-82.8); PLATELET COUNT 396 K/MM3 (134-434); RBC 4.09 M/mm3 (4.00-5.60); RDW 13.5 % (11.9-15.9); WHITE BLOOD COUNT 11.7 K/mm3 (4.0-10.0)
--- NOTE | 2017-09-12 07:52 | PN ---
Physical Exam: SUBJECTIVE: Patient seen and examined. Denies fever or chills. Pain well controlled. Eating and voiding well. OBJECTIVE: Vital Signs Period Temp Pulse Resp BP Sys/Malagon Pulse Ox Last 24 Hr 97.7 F-98.7 F 74-104 14-20 119-149/60-99 98-100 GENERAL: aaox3, nad HEENT:sclera anicteric, conjunctiva clear, mmm NECK: supple, no cervical LAD LUNGS: CTAB HEART: rrr, normal s1/s2, no m/r/g EXTREMITIES: R foot s/p I&D with bandages c/d/i; distal sensation and m/s intact CBC, BMP 09/12/17 06:20 09/11/17 07:43 Hepatic Panel Total Bilirubin 0.5 mg/dL (0.2-1.0) D 09/11/17 07:43 AST 15 U/L (15-37) 09/11/17 07:43 ALT 23 U/L (12-78) 09/11/17 07:43 Alkaline Phosphatase 79 U/L (45-117) 09/11/17 07:43 Albumin 3.3 g/dl (3.4-5.0) L 09/11/17 07:43 Microbiology 09/10/17 09:30 Foot - Right Plantar Gram Stain - Final 09/10/17 09:30 Foot - Right Plantar Wound Culture - Final S Aureus 09/09/17 22:49 Blood - Peripheral Venous Blood Culture - Preliminary NO GROWTH OBTAINED AFTER 48 HOURS, INCUBATION TO CONTINUE FOR 3 DAYS. 09/09/17 22:49 Blood - Peripheral Venous Blood Culture - Preliminary NO GROWTH OBTAINED AFTER 48 HOURS, INCUBATION TO CONTINUE FOR 3 DAYS. Active Medications Enoxaparin Sodium (Lovenox -) 40 mg SQ DAILY [facility] Last Admin: 09/12/17 09:45 Dose: 40 mg IV Flush (Picc Line Flush) 8 ml IVPUSH PRN PRN PRN Reason: Protocol Vancomycin HCl 1,250 mg/ (Dextrose) 250 mls @ 166.667 mls/hr IVPB 0400,1600 ENEDINA PRN Reason: Protocol Last Admin: 09/12/17 16:33 Dose: 166.667 mls/hr Piperacillin Sod/Tazobactam (Sod 4.5 gm/ Dextrose) 100 mls @ 200 mls/hr IVPB Q8H-IV ENEDINA PRN Reason: Protocol Last Admin: 09/12/17 18:02 Dose: 200 mls/hr Ketorolac Tromethamine (Toradol) 10 mg PO Q6H PRN PRN Reason: PAIN LEVEL 1-5 Stop: 09/16/17 15:17 Ondansetron HCl (Zofran Injection) 4 mg IVPUSH Q6H PRN PRN Reason: NAUSEA AND/OR VOMITING ASSESSMENT/PLAN: 26yo Hungarian speaking M who p/w 1xwk worsening R foot pain, erythema, and swelling, admitted for sepsis 2/2 cellulitis. # Sepsis 2/2 RLE MRSA+ cellulitis, abscess, and suspected osteomyelitis s/p I&D POD1; ; s/p Tdap in ED, Alc wnl (5.4%), HIV neg -ID consulted, c/w IV Vanc/Zosyn, Day 4 (f/u Vanc trough today) -Will need PICC on discharge, will d/w ID length of abx treatment -F/u BCx -Dr. Prince, recs appreciated: partial WB R heep with surgical shoe/crutches -Toradol 10mg PO Q6H PRN for pain #PT evaluation # FEN/PPx -PO intake -lytes wnl -Regular diet -Lovenox 40mg SQ #Dispo: m/s, anticipate d/c in 24-48hours. Will need PICC and out-patient IV abx Full code Visit type - Emergency Visit Emergency Visit: No - New Patient This patient is new to me today: No - Critical Care Critical Care patient: No
[2017-09-12] MEDS ORDERED: PT OWN MED DRAWER 7, Y5N ONE (09:18)
[2017-09-12] MEDS: ENOXAPARIN NA (PORCINE) 40 MG/0.4 ML DISP.SYRIN SQ SCH (09:45)
[2017-09-12] MEDS ORDERED: ENOXAPARIN NA (PORCINE) 40 MG/0.4 ML DISP.SYRIN SQ SCH (10:00)
--- NOTE | 2017-09-12 11:54 | PN ---
Progress Note (short form) - Note Progress Note: Podiatry F/U: Seen/evaluated at bedside, NAD. Pain much improved to the right foot since surgery, just occasional throbbing to the foot controlled with PO analgesics. Denies F/V/N/C/SOB/Cp. Afebrile, VSS. S/p R foot incision and drainage POD#1. NADIYA: R foot: pedal pulses palpable, TG warm-warmer, CFT brisk to all toes. Post- surgical site first interspace ulcer with serous drainage, no melida pus, no soft tissue crepitus. Dorsal incision well coapted with packing in place, exiting distally into the first interspace. There is mild tenderness to palpation. There is no purulence, no fluctuance, serosanguinous drainage, no soft tissue crepitus. Midfoot and forefoot erythema and edema mildly improved. Pain to right foot greatly improved. WBC: 11.7 OR Cx: pending Imp: 26 year old M, (+) MRSA, s/p R foot incision and drainage POD#1 1. C/w IV abx per Infectious Disease 2. Packing pulled and saline irrigation at bedside 3. Partial WB R heel with surgical shoe and crutches. PT eval. 4. Pain control. 5. Discussed case with ID. Abscess was clearly more impressive than I anticipated and is down to capsule of first and second MTPJs. Risks of acute osteo given MRI findings. Would recommend IV abx treatment upon discharge. 6. Will follow. Arnulfo Prince DPM
[2017-09-12] MEDS ORDERED: PICC LINE 8 ML FLUSH PROTOCOL IVPUSH PRN (11:58)
--- NOTE | 2017-09-12 15:30 | PN ---
Teaching Attending Note Name of Resident: Dana Haywood ATTENDING PHYSICIAN STATEMENT I saw and evaluated the patient. I reviewed the resident's note and discussed the case with the resident. I agree with the resident's findings and plan as documented with exceptions below. SUBJECTIVE: patient seen and examined. comfortable, denies active right foot pain. no new fevers/chills. OBJECTIVE: Vital Signs Period Temp Pulse Resp BP Sys/Malagon Pulse Ox Last 24 Hr 97.7 F-98.7 F 65-104 14-18 116-149/60-99 98-100 Intake & Output 09/09/17 09/10/17 09/11/17 09/12/17 23:59 23:59 23:59 23:59 Intake Total 3760 4200 1080 Output Total 3500 2605 500 Balance 260 1595 580 Weight 200 lb 191 lb 7 oz General: sitting in bed in no acute distress Extremities: right foot dressing with surrounding toes well perfused Home Medication List Medication Instructions Recorded Confirmed Type NK [No Known Home Medication] 09/11/17 09/11/17 History Active Medications Generic Name Dose Route Start Last Admin Trade Name Freq PRN Reason Stop Dose Admin Enoxaparin Sodium 40 mg 09/12/17 10:00 09/12/17 09:45 Lovenox - SQ 40 mg DAILY ENEDINA Administration IV Flush 8 ml 09/12/17 11:58 Picc Line Flush IVPUSH PRN PRN Protocol Vancomycin HCl 1,250 mg/ 250 mls @ 166.667 mls/hr 09/12/17 04:00 09/12/17 03: 31 Dextrose IVPB 166.667 mls/hr 0400,1600 ENEDINA Administration Protocol Piperacillin Sod/Tazobactam 100 mls @ 200 mls/hr 09/11/17 18:30 09/12/17 09: 45 Sod 4.5 gm/ Dextrose IVPB 200 mls/hr Q8H-IV ENEDINA Administration Protocol Ketorolac Tromethamine 10 mg 09/11/17 17:26 Toradol PO 09/16/17 15:17 Q6H PRN PAIN LEVEL 1-5 Ondansetron HCl 4 mg 09/11/17 16:47 Zofran Injection IVPUSH Q6H PRN NAUSEA AND/OR VOMITING Oxycodone HCl 10 mg 09/11/17 16:47 09/12/17 10:40 Roxicodone - PO 09/12/17 16:46 10 mg Q4H PRN Administration PAIN LEVEL 6-10 Laboratory Results - last 24 hr 09/11/17 09/12/17 15:30 06:20 WBC 11.7 H RBC 4.09 Hgb 12.3 Hct 37.3 MCV 91.3 MCH 30.1 MCHC 33.0 RDW 13.5 Plt Count 396 MPV 7.4 L Neutrophils % 78.4 Lymphocytes % 13.2 Monocytes % 5.8 Eosinophils % 2.1 D Basophils % 0.5 Vancomycin Pre-Dose 3.537 L* Microbiology 09/10/17 09:30 Foot - Right Plantar Gram Stain - Final 09/10/17 09:30 Foot - Right Plantar Wound Culture - Final S Aureus 09/09/17 22:49 Blood - Peripheral Venous Blood Culture - Preliminary NO GROWTH OBTAINED AFTER 48 HOURS, INCUBATION TO CONTINUE FOR 3 DAYS. 09/09/17 22:49 Blood - Peripheral Venous Blood Culture - Preliminary NO GROWTH OBTAINED AFTER 48 HOURS, INCUBATION TO CONTINUE FOR 3 DAYS. 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 ID/podiatry input appreciated. s/p I&D with capsular involvement and high risk for acute osteomyelitis, anticipate detention IV antibiotics. Vanco levels noted, repeat trough today, anticipate higher dose, discuss with ID. HIV neg, A1c 5.4. Tdap given in Ed. pain control morphine/tylenol, taper narcotics to off, looks comfortable. Heel partial weight bearing with crutches, PT eval. DVTPPx lovenox dispo pending above and clinical improvement, anticipate in 48 hours with IV antibiotics/PICC pending ID input and clinical improvement. .
--- NOTE | 2017-09-12 15:30 | PN ---
Progress Note (short form) - Note Progress Note: Post op day#1.S/p I&D Of right foot under MAC uneventful.Patient stable.No any anesthesia related problem.Patient DC from the anesthesia care.
--- NOTE | 2017-09-12 17:44 | MSN ---
Progress Note (short form) - Note Progress Note: SUBJECTIVE: Patient seen and examined this morning. He is hospital day 2 and post-op day 1 from I and D of right foot. Original surgical bandage is dry and in place. Patient tolerated surgery well. No overnight events. Vital signs stable, afebrile. Patient does not complain of pain in the right foot this morning. He is unable to dorsi/plantar flex his ankle as he is limited by the surgical dressing. He is able to move his toes and sensation in the foot is intact. He had been using 2 L O2 via nasal cannula overnight but denies shortness of breath. He denies fevers/chills, nausea/ vomiting, chest pain, or headache. OBJECTIVE: Vital Signs Period Temp Pulse Resp BP Sys/Malagon Pulse Ox Last 24 Hr 97.7 F-98.5 F 65-90 16-18 116-142/60-90 100-100 GENERAL: Young male reclining in bed with right foot elevated on a pillow. HEAD: Normal without evidence of trauma EYES: No conjunctival injection, extra-occular muscles intact MOUTH: Mucous membranes moist, no lesions or plaques NECK: No lymphadenopathy, no thyromegaly, trachea midline CARDIOVASCULAR: No JVD, regular at 70 bpm S1/S2, no murmurs, rubs, or gallops LUNGS: Clear to auscultation b/l, No wheezes or crackles ABDOMEN: Normoactive bowel sounds, soft, non-tender, no rebound or guarding EXTREMITIES: Right foot with dry surgical dressing extending to mid-calf. Toes warm and well-perfused b/l. Active range of motion limited by dressing. Left foot without edema or erythema. No calf tenderness b/l. NEURO: CN II-XII grossly intact. Normal speech. Laboratory Results - last 24 hr 09/12/17 06:20 WBC 11.7 H RBC 4.09 Hgb 12.3 Hct 37.3 MCV 91.3 MCH 30.1 MCHC 33.0 RDW 13.5 Plt Count 396 MPV 7.4 L Neutrophils % 78.4 Lymphocytes % 13.2 Monocytes % 5.8 Eosinophils % 2.1 D Basophils % 0.5 Current Medications Generic Name Dose Route Start Last Admin Trade Name Freq PRN Reason Stop Dose Admin Enoxaparin Sodium 40 mg 09/12/17 10:00 09/12/17 09:45 Lovenox - SQ 40 mg DAILY ENEDINA Administration IV Flush 8 ml 09/12/17 11:58 Picc Line Flush IVPUSH PRN PRN Protocol Vancomycin HCl 1,250 mg/ 250 mls @ 166.667 mls/hr 09/12/17 04:00 09/12/17 16: 33 Dextrose IVPB 166.667 mls/hr 0400,1600 ENEDINA Administration Protocol Piperacillin Sod/Tazobactam 100 mls @ 200 mls/hr 09/11/17 18:30 09/12/17 09: 45 Sod 4.5 gm/ Dextrose IVPB 200 mls/hr Q8H-IV ENEDINA Administration Protocol Ketorolac Tromethamine 10 mg 09/11/17 17:26 Toradol PO 09/16/17 15:17 Q6H PRN PAIN LEVEL 1-5 Ondansetron HCl 4 mg 09/11/17 16:47 Zofran Injection IVPUSH Q6H PRN NAUSEA AND/OR VOMITING IMAGING: EKG- Sinus tachycardia CXR- No acute pathology, large heart LE MRI- Soft tissue edema, fluid collection along plantar aspect of proximal phalanx to dorsal tissue, bone marrow edema of 2nd toe, questionable for early osteomyeltits LE CT-Subcutaneous edema without bony abnormality Doppler U/S LE- No evidence of DVT ASSESSMENT/PLAN: 26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 #Sepsis- secondary to right foot cellulitis and presumed osteomyelitis. On admission patient was tachycardiac with leukocytosis and low-grade fever. Patient has been afebrile x 24 hrs with stable vital signs. WBC increased from 9.7 to 11.7 following surgery. Intra-operative report noted that the abscess extended to the capsule of the 1st toe further increasing the likelihood of osteomyelitis in the setting of elevated inflammatory markers (ESR 58; CRP 20.9) . -Patient on Zosyn 4.5 gm dose #6 and vancomycin 1250 mg dose #5; vancomycin trough level (3.537) is subtherapeutic; will repeat trough level this afternoon and determine need for change in vancomycin dosage -ID recommendation for out-patient antibiotics to treat presumed osteomyeltitis; patient will need PICC line once discharge scheduled -Patient is partial weight bearing to the heel and will need a PT evaluation -He is to follow-up with the wound care clinic next Sunday -Evaluate need for VNS wound care service at home #FEN -Normal diet #DVT prophylaxis -Lovenox 40 units SQ QD #Dispo-pending scheduling of out-patient follow-up
[2017-09-12] MEDS ORDERED: VANCOMYCIN 1 GM PREMIX - 1 GM/200 ML BAG IVPB ONE (18:30)
[2017-09-13] MEDS ORDERED: PIPERACILLIN/TAZOBACTAM 4.5 GM VIAL IVPB ONE ×2 (00:50→09:11)
[2017-09-13] MEDS ORDERED: DEXTROSE 5%-WATER 100 ML IVPB ONE ×2 (00:50→09:12)
[2017-09-13] MEDS: PIPERACILLIN/TAZOB 4.5 GM 4.5 GM in DEXTROSE 5%-WATER 100 ML IVPB SCH ×2 (01:25→09:35)
[2017-09-13] MEDS: VANCOMYCIN 1,250 MG in DEXTROSE 5%-WATER - 250 ML IVPB SCH (03:01)
[2017-09-13 07:13] LABS: BASO % 1.1 % (0-2.0); EOS % 18.2 % (0-4.5); HEMATOCRIT 37.5 % (35.4-49); HEMOGLOBIN 12.5 GM/dL (11.7-16.9); LYMPH % 27.9 % (8-40); MCH 30.4 pg (25.7-33.7); MCHC 33.3 g/dl (32.0-35.9); MEAN CELL VOLUME 91.3 fl (80-96); MEAN PLT VOLUME 7.4 fl (7.5-11.1); MONO % 6.7 % (3.8-10.2); NEUT % 46.1 % (42.8-82.8); PLATELET COUNT 394 K/MM3 (134-434); RBC 4.11 M/mm3 (4.00-5.60); RDW 13.6 % (11.9-15.9); WHITE BLOOD COUNT 7.1 K/mm3 (4.0-10.0)
[2017-09-13 07:31] LABS: ANION GAP 8 (8-16); BLOOD UREA NITROGEN 9 mg/dL (7-18); CALCIUM 8.9 mg/dL (8.5-10.1); CHLORIDE 104 mmol/L (98-107); CO2 29 mmol/L (21-32); GLUCOSE,RANDOM 100 mg/dL (74-106); POTASSIUM 4.1 mmol/L (3.5-5.1); SODIUM 141 mmol/L (136-145)
--- NOTE | 2017-09-13 08:31 | PN ---
Teaching Attending Note Name of Resident: Dana Haywood ATTENDING PHYSICIAN STATEMENT I saw and evaluated the patient. I reviewed the resident's note and discussed the case with the resident. I agree with the resident's findings and plan as documented with exceptions below. SUBJECTIVE: patient seen and examined. No pain or concerns. OBJECTIVE: Vital Signs Period Temp Pulse Resp BP Sys/Malagon Pulse Ox Last 24 Hr 98.2 F-98.3 F 65-80 16-18 116-142/60-75 97-100 Intake & Output 09/10/17 09/11/17 09/12/17 09/13/17 23:59 23:59 23:59 23:59 Intake Total 3760 4200 2230 350 Output Total 3500 2605 500 Balance 260 1595 1730 350 Weight 191 lb 7 oz General: sitting in bed in no acute distress Extremities: right foot dressing just changed by podiatry, further exam deferred Home Medication List Medication Instructions Recorded Confirmed Type NK [No Known Home Medication] 09/11/17 09/11/17 History Active Medications Generic Name Dose Route Start Last Admin Trade Name [place] PRN Reason Stop Dose Admin Enoxaparin Sodium 40 mg 09/12/17 10:00 09/12/17 09:45 Lovenox - SQ 40 mg DAILY ENEDINA Administration IV Flush 8 ml 09/12/17 11:58 Picc Line Flush IVPUSH PRN PRN Protocol Vancomycin HCl 1,250 mg/ 250 mls @ 166.667 mls/hr 09/12/17 04:00 09/13/17 03: 01 Dextrose IVPB 166.667 mls/hr 0400,1600 ENEDINA Administration Protocol Piperacillin Sod/Tazobactam 100 mls @ 200 mls/hr 09/11/17 18:30 09/13/17 01: 25 Sod 4.5 gm/ Dextrose IVPB 200 mls/hr Q8H-IV ENEDINA Administration Protocol Ketorolac Tromethamine 10 mg 09/11/17 17:26 Toradol PO 09/16/17 15:17 Q6H PRN PAIN LEVEL 1-5 Ondansetron HCl 4 mg 09/11/17 16:47 Zofran Injection IVPUSH Q6H PRN NAUSEA AND/OR VOMITING Laboratory Results - last 24 hr 09/12/17 09/13/17 09/13/17 15:30 06:00 06:00 WBC 7.1 D RBC 4.11 Hgb 12.5 Hct 37.5 MCV 91.3 MCH 30.4 MCHC 33.3 RDW 13.6 Plt Count 394 MPV 7.4 L Neutrophils % 46.1 D Lymphocytes % 27.9 D Monocytes % 6.7 Eosinophils % 18.2 H D Basophils % 1.1 Sodium 141 Potassium 4.1 Chloride 104 Carbon Dioxide 29 Anion Gap 8 BUN 9 D Creatinine 1.0 Random Glucose 100 Calcium 8.9 Vancomycin Pre-Dose 3.307 L* D Microbiology 09/09/17 22:49 Blood - Peripheral Venous Blood Culture - Preliminary NO GROWTH OBTAINED AFTER 72 HOURS, INCUBATION TO CONTINUE FOR 2 DAYS. 09/09/17 22:49 Blood - Peripheral Venous Blood Culture - Preliminary NO GROWTH OBTAINED AFTER 72 HOURS, INCUBATION TO CONTINUE FOR 2 DAYS. 09/10/17 09:30 Foot - Right Plantar Gram Stain - Final 09/10/17 09:30 Foot - Right Plantar Wound Culture - Final Mr Godfrey Aureus ASSESSMENT AND PLAN: 26 yof with sepsis secondary to right foot cellulitis/abscess and likely proximal phalanx osteomyelitis -Sepsis secondary to right foot celulitis/abscess/likely proximal phalanx osteomyelitis s/p I&D 09/11 Plan: Zosyn/vancomycin day 5. ID/podiatry input appreciated. s/p I&D with capsular involvement and high risk for acute osteomyelitis, anticipate mcfp IV antibiotics. Vanco levels continue to be subtherapeutic. discussed with Dr. Amos, increase to 1.5g IV q12h, follow up cultures. plan to d/c zosyn. HIV neg, A1c 5.4. Tdap given in Ed. Looks comfortable, d/c narcotics. Heel partial weight bearing with crutches, PT eval noted, home with assist. DVTPPx lovenox dispo pending in 24-48 hours with PIC[facility], IV vancomycin and outpatient wound care/ ID follow up.
[2017-09-13] MEDS: ENOXAPARIN NA (PORCINE) 40 MG/0.4 ML DISP.SYRIN SQ SCH ×2 (09:34→09:38)
--- NOTE | 2017-09-13 11:48 | PN ---
Progress Note (short form) - Note Progress Note: Podiatry F/U: Seen/evaluated at bedside, NAD. Denies F/V/N/C/SOB/CP. Afebrile, VSS. S/p R foot incision and drainage of abscess. NADIYA: R foot: pedal pulses palpable, CFT brisk to all toes. Moderate decrease in edema and erythema, decreasing tenderness to palpation, no purulent drainage, no fluctuance, no streaking cellulitis, no signs of active infection. Minimal serous drainage. First interspace ulcer with fibrogranular base, some probing noted. WBC: 7.1 Wound Cx: MRSA Imp: 26 year old M s/p R foot incision and drainage of abscess 1. IV abx per ID 2. For PICC line 3. Needs home nursing services for local wound care with bactroban to incision site dorsally, iodoform packing lightly packed into first interspace changed 3x/ week. 4. Partial WB R heel with surgical offloading shoe. 5. Upon discharge, can f/u with me in wound healing center this Sunday, . Pod stable. Arnulfo Prince DPM
--- NOTE | 2017-09-13 12:45 | MSN ---
Progress Note (short form) - Note Progress Note: SUBJECTIVE: Patient seen and examined this morning. He is hospital day 3 and post-op day 2 from I and D of right foot. Wound dressing is dry and in place. No overnight events. Vital signs stable, afebrile. Patient admits to mild pain in the foot this morning. He has been able to walk on his heel using a surgical shoe and a cane. He denies numbness or tingling in he right foot. He denies fevers/chills, nausea/ vomiting, chest pain, or headache. OBJECTIVE: Vital Signs Period Temp Pulse Resp BP Sys/Malagon Pulse Ox Last 24 Hr 98.2 F-98.5 F 65-80 16-18 116-142/60-75 97-100 GENERAL: Young male reclining in bed with right foot elevated on a pillow. HEAD: Normal without evidence of trauma EYES: No conjunctival injection, extra-occular muscles intact MOUTH: Mucous membranes moist, no lesions or plaques, uvula mid-line NECK: No lymphadenopathy, no thyromegaly, trachea midline CARDIOVASCULAR: No JVD, regular at 70 bpm S1/S2, no murmurs, rubs, or gallops LUNGS: Clear to auscultation b/l, No wheezes or crackles ABDOMEN: Normoactive bowel sounds, soft, non-tender, no rebound or guarding EXTREMITIES: Right foot with dry surgical dressing extending to mid-calf. Toes warm and well-perfused b/l. Active range of motion limited by dressing. Left foot without edema or erythema. No calf tenderness b/l. Non-tender, mobile, right inguinal lymph node palpable NEURO: CN II-XII grossly intact. Normal speech. Gait not observed. Laboratory Results - last 24 hr 09/12/17 09/13/17 09/13/17 15:30 06:00 06:00 WBC 7.1 D RBC 4.11 Hgb 12.5 Hct 37.5 MCV 91.3 MCH 30.4 MCHC 33.3 RDW 13.6 Plt Count 394 MPV 7.4 L Neutrophils % 46.1 D Lymphocytes % 27.9 D Monocytes % 6.7 Eosinophils % 18.2 H D Basophils % 1.1 Sodium 141 Potassium 4.1 Chloride 104 Carbon Dioxide 29 Anion Gap 8 BUN 9 D Creatinine 1.0 Random Glucose 100 Calcium 8.9 Vancomycin Pre-Dose 3.307 L* D IMAGING: EKG- Sinus tachycardia CXR- No acute pathology, large heart LE MRI- Soft tissue edema, fluid collection along plantar aspect of proximal phalanx to dorsal tissue, bone marrow edema of 2nd toe, questionable for early osteomyeltits LE CT-Subcutaneous edema without bony abnormality Doppler U/S LE- No evidence of DVT Microbiology: Wound culture MRSA positive ASSESSMENT/PLAN: 26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 #Sepsis- secondary to right foot cellulitis/abscess and presumed osteomyelitis. Wound culture MRSA +. On admission patient was tachycardiac with leukocytosis and low-grade fever. Resolved now. Patient afebrile, vss, no leukocytosis. I -Patient on Zosyn 4.5 gm Q8hr and vancomycin 1250 mg q12h; repeat vancomycin trough level (3.307) was subtherapeutic; Patient given vancomycin 1 gram loading dose and increase to vancomycin 1500mg Q12H; repeat vanco pre-dose level tomorrow am -Per ID continue out-patient antibiotics to treat presumed osteomyeltitis; Continue vancomycin 1500 mg IV Q12H; discontinue zosyn. -Patient will need PICC line inserted -Patient is partial weight bearing to the heel and will need a PT evaluation -Dr. Prince ordered for VNS wound care at home and patient is to follow- up in clinic 09/18 #FEN -Normal diet #DVT prophylaxis -Lovenox 40 units SQ QD #Dispo-pending PICC line insertion and therapeutic vancomycin level
--- NOTE | 2017-09-13 13:30 | PN ---
Physical Exam: 24H events: yesterday - Vanc level low, given additional Vanc 1gm dose O/N - No events AM - Wound culture +MRSA SUBJECTIVE: Patient seen and examined. No fever or chills. Pain well controlled. OOB and walked with PT. Eating and voiding well. OBJECTIVE: Vital Signs Period Temp Pulse Resp BP Sys/Malaogn Pulse Ox Last 24 Hr 98.2 F-98.5 F 65-80 16-18 116-142/60-75 97-100 GENERAL: aaox3, nad HEENT:sclera anicteric, conjunctiva clear, mmm NECK: supple, no cervical LAD LUNGS: CTAB HEART: rrr, normal s1/s2, no m/r/g EXTREMITIES: R foot s/p I&D with bandages c/d/i; distal sensation and m/s intact CBC, BMP 09/13/17 06:00 09/13/17 06:00 Microbiology 09/11/17 19:30 Foot - Right Wound Culture - Preliminary Staphylococcus Latex Coag Pos 09/09/17 22:49 Blood - Peripheral Venous Blood Culture - Preliminary NO GROWTH OBTAINED AFTER 72 HOURS, INCUBATION TO CONTINUE FOR 2 DAYS. 09/09/17 22:49 Blood - Peripheral Venous Blood Culture - Preliminary NO GROWTH OBTAINED AFTER 72 HOURS, INCUBATION TO CONTINUE FOR 2 DAYS. 09/10/17 09:30 Foot - Right Plantar Gram Stain - Final 09/10/17 09:30 Foot - Right Plantar Wound Culture - Final Mr S Aureus Active Medications Enoxaparin Sodium (Lovenox -) 40 mg SQ DAILY [facility] Last Admin: 09/13/17 09:38 Dose: Not Given IV Flush (Picc Line Flush) 8 ml IVPUSH PRN PRN PRN Reason: Protocol Piperacillin Sod/Tazobactam (Sod 4.5 gm/ Dextrose) 100 mls @ 200 mls/hr IVPB Q8H-IV ENEDINA PRN Reason: Protocol Last Admin: 09/13/17 09:35 Dose: 200 mls/hr Vancomycin HCl 1,500 mg/ (Dextrose) 500 mls @ 166.667 mls/hr IVPB BID@0400, 1600 ENEDINA PRN Reason: Protocol Vancomycin HCl 1,500 mg/ (Dextrose) 500 mls @ 333.333 mls/hr IVPB ONCE ONE Stop: 09/13/17 17:29 Ketorolac Tromethamine (Toradol) 10 mg PO Q6H PRN PRN Reason: PAIN LEVEL 1-5 Stop: 09/16/17 15:17 Ondansetron HCl (Zofran Injection) 4 mg IVPUSH Q6H PRN PRN Reason: NAUSEA AND/OR VOMITING ASSESSMENT/PLAN: 26yo Samoan speaking M who p/w 1xwk worsening R foot pain, erythema, and swelling, admitted for sepsis 2/2 cellulitis. # Sepsis 2/2 RLE MRSA+ cellulitis, abscess, and suspected osteomyelitis s/p I&D POD2; ; s/p Tdap in ED, A1c wnl (5.4%), HIV neg -ID consulted, c/w IV Vanc/Zosyn, Day 5, will need at least 4 weeks total -Vancomycin subtherapeutic --> increased to Vanc 1.5g BID; will re-check levels prior to discharge -Will need PICC on discharge -Dr. Prince, recs appreciated: partial WB R heep with surgical shoe/crutches , wound care -Toradol 10mg PO Q6H PRN for pain #PT evaluation # FEN/PPx -PO intake -lytes wnl -Regular diet -Lovenox 40mg SQ #Dispo: m/s, anticipate d/c in 24-48hours. Will need PICC, OP IV abx, and VNS wound care Full code d/w Dr. Yolanda Haywood MD PGY1 - Internal Medicine Visit type - Emergency Visit Emergency Visit: No - New Patient This patient is new to me today: No - Critical Care Critical Care patient: No
--- NOTE | 2017-09-13 13:41 | PN ---
Progress Note, Physician History of Present Illness: POD #2 Operative findings discussed with Dr Prince No C/O R foot pain at rest Afebrile WBC improved Wound c/s MRSA - Current Medication List Current Medications: Active Medications Enoxaparin Sodium (Lovenox -) 40 mg SQ DAILY [facility] Last Admin: 09/13/17 09:38 Dose: Not Given IV Flush (Picc Line Flush) 8 ml IVPUSH PRN PRN PRN Reason: Protocol Piperacillin Sod/Tazobactam (Sod 4.5 gm/ Dextrose) 100 mls @ 200 mls/hr IVPB Q8H-IV ENEDINA PRN Reason: Protocol Last Admin: 09/13/17 09:35 Dose: 200 mls/hr Vancomycin HCl 1,500 mg/ (Dextrose) 500 mls @ 166.667 mls/hr IVPB BID@0400, 1600 ENEDINA PRN Reason: Protocol Ketorolac Tromethamine (Toradol) 10 mg PO Q6H PRN PRN Reason: PAIN LEVEL 1-5 Stop: 09/16/17 15:17 Ondansetron HCl (Zofran Injection) 4 mg IVPUSH Q6H PRN PRN Reason: NAUSEA AND/OR VOMITING - Objective Vital Signs: Vital Signs Temperature 98.5 F 09/13/17 10:00 Pulse Rate 80 09/13/17 10:00 Respiratory Rate 18 09/13/17 10:00 Blood Pressure 130/60 09/13/17 10:00 O2 Sat by Pulse Oximetry (%) 100 09/13/17 09:00 Constitutional: Yes: No Distress Eyes: Yes: Conjunctiva Clear Cardiovascular: Yes: Regular Rate and Rhythm, S1, S2 Respiratory: Yes: CTA Bilaterally Gastrointestinal: Yes: Normal Bowel Sounds, Soft. 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
[2017-09-13] MEDS ORDERED: VANCOMYCIN 1,500 MG in DEXTROSE 5%-WATER - 500 ML IVPB SCH (16:00)
[2017-09-13] MEDS ORDERED: VANCOMYCIN 1,500 MG in DEXTROSE 5%-WATER - 500 ML IVPB ONE ×2 (16:00)
[2017-09-13] MEDS: VANCOMYCIN 1,500 MG in DEXTROSE 5%-WATER - 500 ML IVPB SCH (18:31)
[2017-09-14] MEDS ORDERED: VANCOMYCIN 1,500 MG in DEXTROSE 5%-WATER - 500 ML IVPB SCH ×2 (04:00→21:00)
[2017-09-14] MEDS: VANCOMYCIN 1,500 MG in DEXTROSE 5%-WATER - 500 ML IVPB SCH (06:50)
[2017-09-14 07:06] LABS: BASO % 1.3 % (0-2.0); EOS % 17.6 % (0-4.5); HEMATOCRIT 39.3 % (35.4-49); HEMOGLOBIN 13.7 GM/dL (11.7-16.9); MCH 31.5 pg (25.7-33.7); MCHC 34.8 g/dl (32.0-35.9); MEAN CELL VOLUME 90.5 fl (80-96); NEUT % 53.1 % (42.8-82.8); PLATELET COUNT 433 K/MM3 (134-434); RBC 4.34 M/mm3 (4.00-5.60); RDW 13.7 % (11.9-15.9); WHITE BLOOD COUNT 7.5 K/mm3 (4.0-10.0)
--- NOTE | 2017-09-14 08:23 | PN ---
Physical Exam: SUBJECTIVE: Patient seen and examined. Offers no complaints; foot pain well controlled; no fever or chills; has been walking with PT using surgical shoe/ cane; Eating and voiding well. OBJECTIVE: Vital Signs Period Temp Pulse Resp BP Sys/Malagon Pulse Ox Last 24 Hr 98.0 F-98.7 F 63-80 18-18 122-137/59-71 100-100 GENERAL: aaox3, nad HEENT:sclera anicteric, conjunctiva clear, mmm NECK: supple, no cervical LAD LUNGS: CTAB HEART: rrr, normal s1/s2, no m/r/g EXTREMITIES: R foot s/p I&D with bandages c/d/i; distal sensation intact 09/14/17 06:45 09/13/17 06:00 Hepatic Panel Total Bilirubin 0.5 mg/dL (0.2-1.0) D 09/11/17 07:43 AST 15 U/L (15-37) 09/11/17 07:43 ALT 23 U/L (12-78) 09/11/17 07:43 Alkaline Phosphatase 79 U/L (45-117) 09/11/17 07:43 Albumin 3.3 g/dl (3.4-5.0) L 09/11/17 07:43 Microbiology 09/11/17 19:30 Foot - Right Gram Stain - Final 09/11/17 19:30 Foot - Right Wound Culture - Final S Aureus 09/09/17 22:49 Blood - Peripheral Venous Blood Culture - Preliminary NO GROWTH OBTAINED AFTER 96 HOURS, INCUBATION TO CONTINUE FOR 1 DAYS. 09/09/17 22:49 Blood - Peripheral Venous Blood Culture - Preliminary NO GROWTH OBTAINED AFTER 96 HOURS, INCUBATION TO CONTINUE FOR 1 DAYS. 09/10/17 09:30 Foot - Right Plantar Gram Stain - Final 09/10/17 09:30 Foot - Right Plantar Wound Culture - Final S Aureus Active Medications Enoxaparin Sodium (Lovenox -) 40 mg SQ DAILY [facility] Last Admin: 09/14/17 10:02 Dose: 40 mg IV Flush (Picc Line Flush) 8 ml IVPUSH PRN PRN PRN Reason: Protocol Vancomycin HCl 1,500 mg/ (Dextrose) 500 mls @ 250 mls/hr IVPB 0900,2100 ENEDINA PRN Reason: Protocol Ketorolac Tromethamine (Toradol) 10 mg PO Q6H PRN PRN Reason: PAIN LEVEL 1-5 Stop: 09/16/17 15:17 Ondansetron HCl (Zofran Injection) 4 mg IVPUSH Q6H PRN PRN Reason: NAUSEA AND/OR VOMITING ASSESSMENT/PLAN: 26yo [place]ian speaking M who p/w 1xwk worsening R foot pain, erythema, and swelling, admitted for sepsis 2/2 cellulitis and osteomyelitis. # Sepsis 2/2 RLE MRSA+ cellulitis, abscess, and suspected osteomyelitis s/p I&D on 09/11; s/p Tdap 09/10, A1c wnl (5.4%), HIV neg -ID consulted, s/p Zosyn x 2D, c/w Vanc IV -Vancomycin sub-therapeutic; trough 5.462 today, goal 15-20; will give 2gm this evening, then tomorrow 1.5g BID and check trough Sunday AM -Daily BMPs to monitor Cr -Will need PICC on discharge -Dr. Prince, recs appreciated: partial WB R heep with surgical shoe/crutches , c/w wound care instructions -Toradol 10mg PO Q6H PRN for pain #PT evaluation # FEN/PPx -PO intake -lytes wnl -Regular diet -Lovenox 40mg SQ, hold Sunday dose in anticipation of PICC on Sunday #Dispo: m/s, anticipate Sunday if Vanc levels therapeutic on Sunday; Needs PICC , OP IV abx, and VNS wound care; fax Vanc levels to infusion company on Sunday Full code d/w Dr. Yolanda Haywood MD PGY1 - Internal Medicine Visit type - Emergency Visit Emergency Visit: No - New Patient This patient is new to me today: No - Critical Care Critical Care patient: No
[2017-09-14] MEDS: ENOXAPARIN NA (PORCINE) 40 MG/0.4 ML DISP.SYRIN SQ SCH (10:02)
--- NOTE | 2017-09-14 13:59 | MSN ---
Progress Note (short form) - Note Progress Note: SUBJECTIVE: Patient seen and examined this morning. He is hospital day 4 and post-op day 3 from I and D of right foot. Wound dressing is dry and in place. No overnight events. Vital signs stable, afebrile. Patient denies pain in his foot this morning. He is feeling well and is ready to go home. He has been walking without difficulty maintaining weight on his heel using a surgical shoe and a cane. He denies numbness or tingling in he right foot. He denies fevers/chills, nausea/ vomiting, chest pain, or headache. OBJECTIVE: Vital Signs Period Temp Pulse Resp BP Sys/Malagon Pulse Ox Last 24 Hr 98.0 F-98.8 F 63-82 18-20 122-137/59-76 100 GENERAL: Young male lying comfortably in bed; pleasant mood and affect HEAD: Normal without evidence of trauma EYES: No conjunctival injection, extra-occular muscles intact MOUTH: Mucous membranes moist, no lesions or plaques, uvula mid-line NECK: No lymphadenopathy, no thyromegaly, trachea midline CARDIOVASCULAR: No JVD, regular at 75 bpm S1/S2, no murmurs, rubs, or gallops LUNGS: Clear to auscultation b/l, No wheezes or crackles ABDOMEN: Normoactive bowel sounds, soft, non-tender, no rebound or guarding, no pusatile masses, no organomegaly EXTREMITIES: Right foot with dry surgical dressing extending to mid-calf. Toes warm and well-perfused b/l. Active range of motion limited by dressing. Left foot without edema or erythema. 2 + PT pulses b/l. No calf tenderness b/l. Non- tender, mobile, right inguinal lymph node palpable NEURO: CN II-XII grossly intact. Normal speech. Gait not observed. Laboratory Results - last 24 hr 09/14/17 09/14/17 06:45 06:45 WBC 7.5 RBC 4.34 Hgb 13.7 Hct 39.3 MCV 90.5 MCH 31.5 MCHC 34.8 RDW 13.7 Plt Count 433 MPV 7.0 L Neutrophils % 53.1 Lymphocytes % 21.0 D Monocytes % 7.0 Eosinophils % 17.6 H Basophils % 1.3 Vancomycin Pre-Dose 5.462 D Current Medications Generic Name Dose Route Start Last Admin Trade Name Len PRN Reason Stop Dose Admin Enoxaparin Sodium 40 mg 09/12/17 10:00 09/14/17 10:02 Lovenox - SQ 40 mg DAILY ENEDINA Administration IV Flush 8 ml 09/12/17 11:58 Picc Line Flush IVPUSH PRN PRN Protocol Vancomycin HCl 1,500 mg/ 500 mls @ 250 mls/hr 09/14/17 21:00 Dextrose IVPB 0900,2100 [facility] Protocol Ketorolac Tromethamine 10 mg 09/11/17 17:26 Toradol PO 09/16/17 15:17 Q6H PRN PAIN LEVEL 1-5 Ondansetron HCl 4 mg 09/11/17 16:47 Zofran Injection IVPUSH Q6H PRN NAUSEA AND/OR VOMITING IMAGING: EKG- Sinus tachycardia CXR- No acute pathology, large heart LE MRI- Soft tissue edema, fluid collection along plantar aspect of proximal phalanx to dorsal tissue, bone marrow edema of 2nd toe, questionable for early osteomyeltits LE CT-Subcutaneous edema without bony abnormality Doppler U/S LE- No evidence of DVT Microbiology: Wound culture MRSA positive ASSESSMENT/PLAN: 26 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 #Sepsis- secondary to right foot cellulitis/abscess and presumed osteomyelitis. Wound culture MRSA +. On admission patient was tachycardiac with leukocytosis and low-grade fever. Resolved now. Patient afebrile, vss, no leukocytosis. -Patient treated with Zosyn x 3 days and Vancomycin. Zosyn discontinued. Repeated vancomycin trough levels have been subtherapeutic (3.5, 3.3, 5.4) depsite 1 gram loading dose; target vancomycin level for treating osteomyelitis is 15-20 mg/dL -Will increase to vancomycin 2000 mg once this evening and repeat vancomycin trough level Sunday am and then will continue at vancomycin 1500 mg Q12H -Continue to monitor patient's kidney function -Per ID continue out-patient antibiotics to treat presumed osteomyeltitis; Continue vancomycin 1500 mg IV Q12H -Patient will need PICC line inserted on Sunday -Patient is partial weight bearing to the heel and has been evaluated by PT -Dr. Prince ordered for VNS wound care at home and patient is to follow- up in clinic 09/18 #FEN -Normal diet #DVT prophylaxis -Lovenox 40 units SQ QD #Dispo-Once vancomycin therapeutic and PICC line inserted patient can be discharged with VNS
--- NOTE | 2017-09-14 14:14 | PN ---
Progress Note (short form) - Note Progress Note: asked to f/u for vancomycin dosing patient without complaints Vital Signs Period Temp Pulse Resp BP Sys/Malagon Pulse Ox Last 24 Hr 98.6 F-98.8 F 65-82 18-20 123-137/65-76 100 cor-rrr llungs clear abd soft,nt ext dressing intact CBC, BMP 09/14/17 06:45 09/13/17 06:00 Laboratory Tests 09/11/17 09/12/17 09/14/17 15:30 15:30 06:45 Vancomycin Pre-Dose 3.537 L* 3.307 L* D 5.462 D a/p MRSA foot infection dosing reviewed just increased last night to 1500 continue same dose and check level in am - I think level will start rising creatinine now 1 as well hesitant to increase vanco dose further without knowing the renal function also not as a steady state yet thanks
[2017-09-14] MEDS ORDERED: ACETAMINOPHEN 325 MG TABLET (FP) PO PRN (15:23)
--- NOTE | 2017-09-14 15:23 | PN ---
Teaching Attending Note Name of Resident: Dana Haywood ATTENDING PHYSICIAN STATEMENT I saw and evaluated the patient. I reviewed the resident's note and discussed the case with the resident. I agree with the resident's findings and plan as documented with exceptions below. SUBJECTIVE: patient seen and examined. No complaints. OBJECTIVE: Vital Signs Period Temp Pulse Resp BP Sys/Malagon Pulse Ox Last 24 Hr 98.6 F-99.0 F 65-89 16-20 123-140/65-76 97-100 Intake & Output 09/11/17 09/12/17 09/13/17 09/14/17 23:59 23:59 23:59 23:59 Intake Total 4200 2230 1800 550 Output Total 2605 500 Balance 1595 1730 1800 550 general: sitting in bed in no acute distress Extremities: right foot dressing, unchanged exam otherwise Home Medication List Medication Instructions Recorded Confirmed Type NK [No Known Home Medication] 09/11/17 09/11/17 History Active Medications Generic Name Dose Route Start Last Admin Trade Name Freq PRN Reason Stop Dose Admin Enoxaparin Sodium 40 mg 09/12/17 10:00 09/14/17 10:02 Lovenox - SQ 40 mg DAILY ENEDINA Administration IV Flush 8 ml 09/12/17 11:58 Picc Line Flush IVPUSH PRN PRN Protocol Vancomycin HCl 2,000 mg/ 250 mls @ 166.667 mls/hr 09/14/17 21:00 Dextrose IVPB 09/14/17 22:29 ONCE ONE Protocol Vancomycin HCl 1,500 mg/ 500 mls @ 250 mls/hr 09/15/17 09:00 Dextrose IVPB 0900,2100 [facility] Protocol Ketorolac Tromethamine 10 mg 09/11/17 17:26 Toradol PO 09/16/17 15:17 Q6H PRN PAIN LEVEL 1-5 Ondansetron HCl 4 mg 09/11/17 16:47 Zofran Injection IVPUSH Q6H PRN NAUSEA AND/OR VOMITING Laboratory Results - last 24 hr 09/14/17 09/14/17 06:45 06:45 WBC 7.5 RBC 4.34 Hgb 13.7 Hct 39.3 MCV 90.5 MCH 31.5 MCHC 34.8 RDW 13.7 Plt Count 433 MPV 7.0 L Neutrophils % 53.1 Lymphocytes % 21.0 D Monocytes % 7.0 Eosinophils % 17.6 H Basophils % 1.3 Vancomycin Pre-Dose 5.462 D Microbiology 09/11/17 19:30 Foot - Right Gram Stain - Final 09/11/17 19:30 Foot - Right Wound Culture - Final S Aureus 09/09/17 22:49 Blood - Peripheral Venous Blood Culture - Preliminary NO GROWTH OBTAINED AFTER 96 HOURS, INCUBATION TO CONTINUE FOR 1 DAYS. 09/09/17 22:49 Blood - Peripheral Venous Blood Culture - Preliminary NO GROWTH OBTAINED AFTER 96 HOURS, INCUBATION TO CONTINUE FOR 1 DAYS. 09/10/17 09:30 Foot - Right Plantar Gram Stain - Final 09/10/17 09:30 Foot - Right Plantar Wound Culture - Final S Aureus ASSESSMENT AND PLAN: 26 yof with sepsis secondary to right foot cellulitis/abscess and likely proximal phalanx osteomyelitis -Sepsis secondary to right foot celulitis/abscess/likely proximal phalanx osteomyelitis s/p I&D 09/11 Plan: s/p 5 days of zosyn. Now on vancomycin day 6. Discussed with Dr. Boyd. 2g IV x1 tonight dosing. Continue 1.5 g IV q12h from tomorrow, Check levels on . Monitor renal function. s/p I&D with capsular involvement and high risk for acute osteomyelitis, anticipate informatics coordinator IV antibiotics. HIV neg, A1c 5.4. Tdap given in Ed. Looks comfortable, d/c narcotics. Heel partial weight bearing with crutches, PT eval noted, home with assist. DVTPPx lovenox dispo pending in 48-72 hours once vanco level therapeutic with home VNS and wound/podiatry follow up on 09/18 as arranged. Plan discussed with patient in detail, all questions answered.
[2017-09-14] MEDS ORDERED: VANCOMYCIN 2,000 MG in DEXTROSE 5%-WATER - 500 ML IVPB ONE (21:00)
--- NOTE | 2017-09-15 07:59 | PN ---
Physical Exam: 26H Events: yesterday - Vanc trough 5.462; PM dose increased to 2gm ON/AM - no events SUBJECTIVE: Patient seen and examined. Offers no complaints; No fever or chills , pain controlled; ambulating, eating, and voiding well. OBJECTIVE: Vital Signs Period Temp Pulse Resp BP Sys/Malagon Pulse Ox Last 24 Hr 98.2 F-99.0 F 72-89 16-20 117-144/63-92 96-97 GENERAL: aaox3, nad HEENT:sclera anicteric, conjunctiva clear, mmm NECK: supple, no cervical LAD LUNGS: CTAB HEART: rrr, normal s1/s2, no m/r/g EXTREMITIES: R foot s/p I&D with bandages c/d/i; distal sensation intact BMP 09/15/17 08:35 Microbiology 09/09/17 22:49 Blood - Peripheral Venous Blood Culture - Final NO GROWTH AFTER 5 DAYS INCUBATION 09/09/17 22:49 Blood - Peripheral Venous Blood Culture - Final NO GROWTH AFTER 5 DAYS INCUBATION 09/11/17 19:30 Foot - Right Gram Stain - Final 09/11/17 19:30 Foot - Right Wound Culture - Final S Aureus 09/10/17 09:30 Foot - Right Plantar Gram Stain - Final 09/10/17 09:30 Foot - Right Plantar Wound Culture - Final S Aureus Active Medications Acetaminophen (Tylenol -) 650 mg PO Q6H PRN PRN Reason: PAIN Enoxaparin Sodium (Lovenox -) 40 mg SQ DAILY [facility] Last Admin: 09/14/17 10:02 Dose: 40 mg IV Flush (Picc Line Flush) 8 ml IVPUSH PRN PRN PRN Reason: Protocol Vancomycin HCl 1,500 mg/ (Dextrose) 500 mls @ 250 mls/hr IVPB BID@0900,2100 [facility] PRN Reason: Protocol Ketorolac Tromethamine (Toradol) 10 mg PO Q6H PRN PRN Reason: PAIN LEVEL 1-5 Stop: 09/16/17 15:17 Ondansetron HCl (Zofran Injection) 4 mg IVPUSH Q6H PRN PRN Reason: NAUSEA AND/OR VOMITING ASSESSMENT/PLAN: 26yo Yoruba speaking M who p/w 1xwk worsening R foot pain, erythema, and swelling, admitted for sepsis 2/2 cellulitis and osteomyelitis. # Sepsis 2/2 RLE MRSA+ cellulitis, abscess, and suspected osteomyelitis s/p I&D on 09/11; s/p Tdap 09/10, A1c wnl (5.4%), HIV neg -ID consulted, s/p Zosyn x 2D, c/w Vanc 1.5mg IV BID -Vancomycin sub-therapeutic: increased dose Vanc 1.5gm BID, will check trough Sun AM before 4th dose (goal 15-20) -Daily BMPs to monitor Cr -Will need PICC on discharge -Dr. Prince, recs appreciated: partial WB R heel with surgical shoe/crutches , c/w wound care instructions -Toradol 10mg PO Q6H PRN for pain #PT evaluation # FEN/PPx -PO intake -lytes wnl -Regular diet -d/c lovenox in anticipation of PICC on Sunday #Dispo: m/s, anticipate Sunday if Vanc levels therapeutic on Sunday; Needs PICC , OP IV abx, and VNS wound care; fax Vanc levels to [facility] on Sunday if therapeutic Full code d/w Dr. Yolanda Haywood MD PGY1 - Internal Medicine Visit type - Emergency Visit Emergency Visit: No - New Patient This patient is new to me today: No - Critical Care Critical Care patient: No
[2017-09-15] MEDS ORDERED: PT OWN MED DRAWER 7, Y5N ONE (09:08)
[2017-09-15 09:23] LABS: ANION GAP 3 (8-16); BLOOD UREA NITROGEN 14 mg/dL (7-18); CHLORIDE 105 mmol/L (98-107); CO2 31 mmol/L (21-32); GLUCOSE,RANDOM 102 mg/dL (74-106); POTASSIUM 4.9 mmol/L (3.5-5.1); SODIUM 139 mmol/L (136-145)
[2017-09-15] MEDS: VANCOMYCIN 1,500 MG in DEXTROSE 5%-WATER - 500 ML IVPB SCH ×2 (09:57→21:11)
[2017-09-15] MEDS: ENOXAPARIN NA (PORCINE) 40 MG/0.4 ML DISP.SYRIN SQ SCH (09:57)
--- NOTE | 2017-09-15 10:00 | PN ---
Teaching Attending Note Name of Resident: Dana Haywood ATTENDING PHYSICIAN STATEMENT I saw and evaluated the patient. I reviewed the resident's note and discussed the case with the resident. I agree with the resident's findings and plan as documented with exceptions below. SUBJECTIVE: Patient seen and examined, no complaints, eager to be discharged on Sunday. OBJECTIVE: Vital Signs Period Temp Pulse Resp BP Sys/Malagon Pulse Ox Last 24 Hr 98.2 F-99.0 F 72-89 16-20 117-144/63-92 96 Intake & Output 09/12/17 09/13/17 09/14/17 09/15/17 23:59 23:59 23:59 23:59 Intake Total 2230 1800 1050 250 Output Total 500 650 Balance 1730 1800 1050 -400 General: sitting in chair in no acute distress Extremities: right foot dressing, unchanged exam otherwise Home Medication List Medication Instructions Recorded Confirmed Type NK [No Known Home Medication] 09/11/17 09/11/17 History Active Medications Generic Name Dose Route Start Last Admin Trade Name Len PRN Reason Stop Dose Admin Acetaminophen 650 mg 09/14/17 15:23 Tylenol - PO Q6H PRN PAIN Enoxaparin Sodium 40 mg 09/12/17 10:00 09/15/17 09:57 Lovenox - SQ 40 mg DAILY ENEDINA Administration IV Flush 8 ml 09/12/17 11:58 Picc Line Flush IVPUSH PRN PRN Protocol Vancomycin HCl 1,500 mg/ 500 mls @ 250 mls/hr 09/15/17 09:00 09/15/17 09:57 Dextrose IVPB 250 mls/hr BID@0900,2100 [facility] Administration Protocol Ketorolac Tromethamine 10 mg 09/11/17 17:26 Toradol PO 09/16/17 15:17 Q6H PRN PAIN LEVEL 1-5 Ondansetron HCl 4 mg 09/11/17 16:47 Zofran Injection IVPUSH Q6H PRN NAUSEA AND/OR VOMITING Laboratory Results - last 24 hr 09/15/17 08:35 Sodium 139 Potassium 4.9 Chloride 105 Carbon Dioxide 31 Anion Gap 3 L BUN 14 D Creatinine 1.0 Random Glucose 102 Calcium 9.0 Microbiology 09/09/17 22:49 Blood - Peripheral Venous Blood Culture - Final NO GROWTH AFTER 5 DAYS INCUBATION 09/09/17 22:49 Blood - Peripheral Venous Blood Culture - Final NO GROWTH AFTER 5 DAYS INCUBATION 09/11/17 19:30 Foot - Right Gram Stain - Final 09/11/17 19:30 Foot - Right Wound Culture - Final S Aureus 09/10/17 09:30 Foot - Right Plantar Gram Stain - Final 09/10/17 09:30 Foot - Right Plantar Wound Culture - Final S Aureus ASSESSMENT AND PLAN: 26 yof with sepsis secondary to right foot cellulitis/abscess and likely proximal phalanx osteomyelitis -Sepsis secondary to right foot celulitis/abscess/likely proximal phalanx osteomyelitis s/p I&D 09/11 Plan: s/p 5 days of zosyn. Now on vancomycin day 7.Repeat vanco levels tomorrow AM, continue 1500 mg BID for now as discussed with ID. Monitor renal function. 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 HIV neg, A1c 5.4. Tdap given in Ed. Looks comfortable, off narcotics. Heel partial weight bearing with crutches, PT eval noted, home with assist. DVTPPx lovenox dispo planning likely on sunday once vanco level therapeutic with home VNS and wound/podiatry follow up on 09/18 as arranged. Plan discussed with patient in detail, all questions answered.
[2017-09-16 09:15] LABS: ANION GAP 6 (8-16); BLOOD UREA NITROGEN 13 mg/dL (7-18); CALCIUM 9.5 mg/dL (8.5-10.1); CHLORIDE 104 mmol/L (98-107); CO2 29 mmol/L (21-32); GLUCOSE,RANDOM 101 mg/dL (74-106); POTASSIUM 4.8 mmol/L (3.5-5.1); SODIUM 139 mmol/L (136-145)
[2017-09-16] MEDS: VANCOMYCIN 1,500 MG in DEXTROSE 5%-WATER - 500 ML IVPB SCH ×2 (10:46→20:37)
--- NOTE | 2017-09-16 16:43 | PN ---
Teaching Attending Note Name of Resident: Ravinder Guerrero SUBJECTIVE: Patient seen and examined. no complaints. OBJECTIVE: Vital Signs Period Temp Pulse Resp BP Sys/Malagon Pulse Ox Last 24 Hr 98.2 F-98.6 F 72-94 18-20 117-135/58-70 100 Intake & Output 09/13/17 09/14/17 09/15/17 09/16/17 23:59 23:59 23:59 23:59 Intake Total 1800 1050 1550 700 Output Total 1000 600 Balance 1800 1050 550 100 General: sitting in chair in no acute distress Chest: CTAB, no rales or wheezing Abdomen:soft, NT, ND, positive bowel sounds Extremities: right toe dressing, unchanged exam Home Medication List Medication Instructions Recorded Confirmed Type NK [No Known Home Medication] 09/11/17 09/11/17 History Active Medications Generic Name Dose Route Start Last Admin Trade Name Freq PRN Reason Stop Dose Admin Acetaminophen 650 mg 09/14/17 15:23 Tylenol - PO Q6H PRN PAIN IV Flush 8 ml 09/12/17 11:58 Picc Line Flush IVPUSH PRN PRN Protocol Vancomycin HCl 1,500 mg/ 500 mls @ 250 mls/hr 09/15/17 09:00 09/16/17 10:46 Dextrose IVPB 250 mls/hr BID@0900,2100 [facility] Administration Protocol Ondansetron HCl 4 mg 09/11/17 16:47 Zofran Injection IVPUSH Q6H PRN NAUSEA AND/OR VOMITING Laboratory Results - last 24 hr 09/16/17 09/16/17 08:20 08:20 Sodium 139 Potassium 4.8 Chloride 104 Carbon Dioxide 29 Anion Gap 6 L BUN 13 Creatinine 1.0 Random Glucose 101 Calcium 9.5 Vancomycin Pre-Dose 9.542 D Microbiology 09/09/17 22:49 Blood - Peripheral Venous Blood Culture - Final NO GROWTH AFTER 5 DAYS INCUBATION 09/09/17 22:49 Blood - Peripheral Venous Blood Culture - Final NO GROWTH AFTER 5 DAYS INCUBATION 09/11/17 19:30 Foot - Right Gram Stain - Final 09/11/17 19:30 Foot - Right Wound Culture - Final Mr S Aureus 09/10/17 09:30 Foot - Right Plantar Gram Stain - Final 09/10/17 09:30 Foot - Right Plantar Wound Culture - Final Mr S Aureus ASSESSMENT AND PLAN: 26 yof with sepsis secondary to right foot cellulitis/abscess and likely proximal phalanx osteomyelitis -Sepsis secondary to right foot celulitis/abscess/likely proximal phalanx osteomyelitis s/p I&D 09/11 Plan: s/p 5 days of zosyn. Now on vancomycin day 8 Vanco level noted today, close to 10. Discussed with Dr. Vargas, confirms dose therapeutic range around 10 given absence of bacteremia or sepsis on presentation. ALso higher dose likely to raise levels to supratherapeutic range as discussed. Will continue vancomycin 1500 mg BID on discharge with monitoring levels outpatient. Monitor renal function. S/p I&D with capsular involvement and high risk for acute osteomyelitis, anticipate fci IV antibiotics. HIV neg, A1c 5.4. Tdap given in Ed. Looks comfortable, off narcotics. Heel partial weight bearing with crutches, PT eval noted, home with assist. DVTPPx lovenox dispo planning likely on sunday after PICC on Vancomycin 1500 mg IV BID with home VNS and wound/podiatry follow up on 09/18 as arranged. Plan discussed with patient in detail, all questions answered.
[2017-09-17] MEDS ORDERED: PT OWN MED DRAWER 7, Y5N ONE ×2 (07:14→08:49)
[2017-09-17 08:08] LABS: ANION GAP 5 (8-16); BLOOD UREA NITROGEN 17 mg/dL (7-18); CALCIUM 8.9 mg/dL (8.5-10.1); CHLORIDE 106 mmol/L (98-107); CO2 28 mmol/L (21-32); CREATININE 1.1 mg/dL (0.7-1.3); GLUCOSE,RANDOM 102 mg/dL (74-106); POTASSIUM 4.6 mmol/L (3.5-5.1); SODIUM 139 mmol/L (136-145)
[2017-09-17] MEDS ORDERED: INSULIN (NOVOLOG) ASPART 100 UNITS/ML 10ML VIAL ONE (08:49)
[2017-09-17] MEDS: VANCOMYCIN 1,500 MG in DEXTROSE 5%-WATER - 500 ML IVPB SCH ×2 (10:26→13:20)
--- NOTE | 2017-09-17 12:07 | PN ---
Progress Note (short form) - Note Progress Note: Podiatry F/U; Seen/evaluated at bedside, NAD. Pain well controlled, denies F/V/N/C/SOB/CP. Afebrile, VSS. S/p R foot incision and drainage of MRSA abscess. NADIYA: R foot: pedal pulses palpable, TG wnl, CFT brisk to all toes. Suture site well coapted dorsal midfoot, no dehiscence, no purulence. First interspace ulcer strong granular base, no purulence, no fluctuance, cellulitis and edema to foot greatly improved, minimal tenderness. OR Cx: MRSA Imp: 26 year old M s/p R foot incision and drainage of MRSA abscess 1. IV Vanco BID for treatment of osteomyelitis 2. Local wound care 3. Podiatry stable for discharge. Will f/u with me tomorrow at wound healing center. [phone] Arnulfo Prince DPM
--- NOTE | 2017-09-17 13:15 | DS ---
Physical Exam: SUBJECTIVE: Patient seen and examined. No events overnight. Offers no complaints. Denies fever, chills, abdominal pain, CP. OBJECTIVE: Vital Signs Period Temp Pulse Resp BP Sys/Malagon Pulse Ox Last 24 Hr 98.2 F-98.5 F 69-94 16-18 119-132/49-84 100-100 PHYSICAL EXAM GENERAL: aaox3, nad HEENT:sclera anicteric, conjunctiva clear, mmm NECK: supple, no cervical LAD LUNGS: CTAB HEART: rrr, normal s1/s2, no m/r/g EXTREMITIES: R foot s/p I&D with bandages c/d/i; distal sensation intact LABS Laboratory Results - last 24 hr 09/17/17 06:35 Sodium 139 Potassium 4.6 Chloride 106 Carbon Dioxide 28 Anion Gap 5 L BUN 17 D Creatinine 1.1 Random Glucose 102 Calcium 8.9 Microbiology 09/09/17 22:49 Blood - Peripheral Venous Blood Culture - Final NO GROWTH AFTER 5 DAYS INCUBATION 09/09/17 22:49 Blood - Peripheral Venous Blood Culture - Final NO GROWTH AFTER 5 DAYS INCUBATION 09/11/17 19:30 Foot - Right Gram Stain - Final 09/11/17 19:30 Foot - Right Wound Culture - Final S Aureus --> Resistant to Oxacillin and Penicillin 09/10/17 09:30 Foot - Right Plantar Gram Stain - Final 09/10/17 09:30 Foot - Right Plantar Wound Culture - Final S Aureus HOSPITAL COURSE: Date of Admission:09/10/17 Date of Discharge: 09/17/17 Pre-Hospital Admission: 26yo Maori speaking M presented to the ER w/ 1 week of gradually worsening R foot pain, erythema, and swelling. He works for a [employer] company and cut his foot at work last week. At work, he constantly walks with wet shoes/socks and neglects foot care at home. He noticed red dots w/ pustules, which he manually popped. For the past 2 days, endorses fevers, chills, loss of appetite, n/v. Also felt an enlarged lymph node in R groin. His brother at one point took a scalpel and incised the medial plantar aspect, and it drained some serosanguinous fluid. He went to [facility] ER but left AMA. Came here after being convinced by girlfriend. In the ER, the patient was febrile to Tm 101.9 and tachy to the 110s. Sepsis protocol was initiated. Labs were notable for significant leukocytosis w/o lactic acid, and elevated ESR/CRP. CT of RLE showed suspected cellulitis w/o abscess. RLE duplex is negative. Tetanus shot given. Subsequent Hospital Course: The patient was admitted for sepsis 2/2 MRSA+ cellulitis, abscess and suspected proximal phalanx osteomyelitis. Dr. Prince was consulted and performed I&D with wound debridement on 09/11. Patient noted to have capsular involvement during I&D. In discussion with ID, the patient will be treated with long-term antibiotics for at least 4 weeks. The patient has received Zosyn for 5 days and Vancomycin for 8 days. Vancomycin pre-dose level yesterday (09/16) was 9.542. The patient will continue with Vancomycin 1.5mg IV BID. Patient was HIV negative and A1c 5.4%. He received Tdap vaccination on admission. Imaging: EXAM#: TYPE/EXAM: RESULT: [id number] CT/LOWER EXTREMITY CT W/O CONTR History provided: Right foot swelling. Sequential axial images were obtained through the right ankle and foot. Coronal and sagittal reconstructed images were also performed. There is no evidence of fracture, dislocation or acute bone or joint abnormalities. There is a moderate degree of subcutaneous edema, most marked along the dorsal surface of the foot. This could be indicative of cellulitis. No discrete mass or fluid collection is present in this location. A follow-up MRI may be warranted, if further evaluation of the tendinous and ligamentous structures of the foot is clinically indicated. IMPRESSION: Soft tissue swelling with no evidence of fracture, acute bone or joint abnormalities. Clinical correlation and follow-up recommended. Please see above discussion. Reported By: Pankaj Wren MD 09/10/17 0942 EXAM#: TYPE/EXAM: RESULT: [id number] US/DUPLEX VASCUL US-1 LEG HISTORY PROVIDED: Pain and swelling right lower extremity. Real time and doppler evaluation of the right lower extremity demonstrates the following: There is no evidence of deep venous thrombosis within the common, deep and superficial femoral veins, as well as the popliteal and posterior tibial veins. The greater saphenous vein is also patent. These veins are fully compressible, as well. Subcutaneous edema is identified about the foot. IMPRESSION: No evidence of deep venous thrombosis. EXAM#: TYPE/EXAM: RESULT: [id number] RAD/CHEST X-RAY PORTABLE* AP portable chest : Sepsis A single AP view of the chest reveals clear lungs, scoliosis with convexity to the right, sharp angles, intact soft tissues, large heart, normal aorta and normal darline. An acute process is not seen. Impression : Large heart. No acute chest pathology. Scoliosis. EXAM#: TYPE/EXAM: RESULT: [id number] MRI/LOWER EXTREMITY MRI W WO-RIGHT Exam: MRI of the right foot with gadolinium. Clinical indication: Evaluate for osteomyelitis/infection. Description: Coronal T1 and T2 STIR; axial T1 and T2 STIR; and sagittal T1 and T2 STIR images were obtained and followed by post gadolinium sagittal, axial, and coronal fat-suppressed T1-weighted images. The area of clinical concern over the plantar aspect of the distal second metatarsal was marked by an external marker. There is marked diffuse soft tissue edema of the foot. There appears to be a bandage along the plantar aspect of the foot at the level of the proximal aspect of the proximal phalanx of the hallux. There is an open wound of the plantar aspect of the mid proximal phalanx of the first toe. There is focal fluid along the plantar aspect of the mid to distal proximal phalanx of the hallux which is extending into the lateral soft tissues of the first toe and along the medial soft tissues of the second toe. This focal fluid collection at the plantar aspect of the toe measures 2.2 cm transversely, 1.3 cm in thickness, and 10 mm in length. The more focal areas of fluid along the lateral aspect of the proximal phalanx of the first toe and along the medial aspect of the proximal phalanx of the second toe appear contiguous along the plantar loose collection and are extending into the dorsal soft tissues. There is a question of faint bone marrow edema of the proximal to mid proximal phalanx of the second toe which could be due to volume averaging of the adjacent soft tissues seen on the sagittal and coronal T2 STIR images but not definitely confirmed on the axial images. Impression: 1. Diffuse soft tissue edema of the foot. 2. Open wound along the plantar aspect of the mid proximal phalanx of the first toe. 3. Focal fluid collection along the plantar aspect of the mid to distal proximal phalanx of the first toe extending into the lateral soft tissues of the first toe and along the medial soft tissues of the second toe which is contiguous to the plantar fluid collection and is extending into the dorsal soft tissues. 4. Question of faint bone marrow edema of the proximal to mid proximal phalanx of the second toe which could be due to volume averaging of the adjacent soft tissues and could be nonspecific however early osteomyelitis cannot be excluded. Consults: Podiatry: Dr. Prince ID: Dr. Vargas, Dr. Boyd, Dr. Amos Minutes to complete discharge: 45 Discharge Summary Reason For Visit: SEPSIS Current Active Problems Cellulitis of foot (Acute) Foot abscess (Acute) Condition: Stable - Instructions Diet, Activity, Other Instructions: You were admitted to the hospital for an infection in your foot and bone that needed to be surgically drained. You are being treated with IV antibiotics. You had a PICC line placed in your arm in order to continue your IV antibiotics. Recommendations: -Follow the instruction of Physical Therapy. Only bear weight on your Right heel and use your surgical shoe when walking. Physical therapy will come to your house and continue to work with you. -Visiting nurse services will come to your house to change your foot bandages. -Do not lift heavy items greater than 15lbs with your PICC line arm. Keep the end of the PICC line covered and clean to prevent infection. Medications: -You will be on Vancomycin 1.5mg IV two times per day (12 hours apart) for at least 4 more weeks depending on well your wound heals. The Visiting nurse services will show you how to give the injection. Follow-ups: -Make an appointment to see Dr. Prince tomorrow (09/18) at the Wound Care clinic. -Have your Vancomycin levels checked tomorrow when you are the Wound Care clinic. -Make an appointment to see Dr. Arias at the Resident [facility] in 1 week. You should have weekly CBC and BMP to monitor your blood levels and kidney function. Please return to the Emergency Department if you have fever, chills, worsening foot pain, or any new or concerning symptoms. Referrals: Blake Owen MD [Staff Physician] - Lolly Arias RES [Resident] - Yaya Amos MD [Staff Physician] - Damien Prince MD [Staff Physician] - 09/18/17 Disposition: VNS/HOME HEALTH CARE - Home Medications Comprehensive Discharge Medication List: Ambulatory Orders Vancomycin 1,500 mg IVPB BID@0900,2100 vial 09/17/17 This patient is new to me today: No Emergency Visit: No Critical Care patient: No - Discharge Referral Referred to [facility] No
[2017-09-17 13:51] VITALS: BP 144/80; PULSE 82; TEMP 99.2
--- NOTE | 2017-09-17 14:35 | PN ---
Progress Note, Physician History of Present Illness: POD #6 Operative findings discussed with Dr Prince No C/O R foot pain at rest Afebrile WBC improved Wound c/s MRSA - Current Medication List Current Medications: Active Medications Acetaminophen (Tylenol -) 650 mg PO Q6H PRN PRN Reason: PAIN IV Flush (Picc Line Flush) 8 ml IVPUSH PRN PRN PRN Reason: Protocol Vancomycin HCl 1,500 mg/ (Dextrose) 500 mls @ 250 mls/hr IVPB BID@0900,2100 ENEDINA PRN Reason: Protocol Last Admin: 09/17/17 13:20 Dose: 250 mls/hr Ondansetron HCl (Zofran Injection) 4 mg IVPUSH Q6H PRN PRN Reason: NAUSEA AND/OR VOMITING - Objective Vital Signs: Vital Signs Temperature 99.2 F 09/17/17 13:50 Pulse Rate 82 09/17/17 13:50 Respiratory Rate 18 09/17/17 13:50 Blood Pressure 144/80 09/17/17 13:50 O2 Sat by Pulse Oximetry (%) 100 09/17/17 09:00 Constitutional: Yes: No Distress Cardiovascular: Yes: Regular Rate and Rhythm, S1, S2 Respiratory: Yes: CTA Bilaterally Gastrointestinal: Yes: Normal Bowel Sounds, Soft Extremities: Yes: Other (foot dressing in place) Labs: CBC, BMP 09/14/17 06:45 09/17/17 06:35 INR, PTT INR 1.35 (0.82-1.09) H 09/09/17 22:49 Assessment/Plan R foot cellulitis /abscess S/P debridement Continue vancomycin Will need PICC for custodial antibiotic therapy (4-6week course) Will assess further need for IV antiobiotic v. switch to po after week 4 Outpatient follow up wound care center
--- NOTE | 2017-09-17 15:30 | PN ---
Teaching Attending Note Name of Resident: Dana Haywood ATTENDING PHYSICIAN STATEMENT I saw and evaluated the patient. I reviewed the resident's note and discussed the case with the resident. I agree with the resident's findings and plan as documented with exceptions below. SUBJECTIVE: patient seen and examined, no complaints. OBJECTIVE: Vital Signs Period Temp Pulse Resp BP Sys/Malagon Pulse Ox Last 24 Hr 98.2 F-99.2 F 69-89 16-18 119-144/49-84 100-100 Intake & Output 09/14/17 09/15/17 09/16/17 09/17/17 23:59 23:59 23:59 23:59 Intake Total 1050 1550 1200 900 Output Total 1000 600 Balance 1050 550 600 900 General: sitting in chair in no acute distress Extremities: right foot dressing opened. well healing inciso[place] on dorsum and ball of great toe with sutures, no active discharge/bleeding/erythema/warmth or tenderness, minimal swelling, able to move toes well, positive DP pulses. Active Medications Generic Name Dose Route Start Last Admin Trade Name Freq PRN Reason Stop Dose Admin Acetaminophen 650 mg 09/14/17 15:23 Tylenol - PO Q6H PRN PAIN IV Flush 8 ml 09/12/17 11:58 Picc Line Flush IVPUSH PRN PRN Protocol Vancomycin HCl 1,500 mg/ 500 mls @ 250 mls/hr 09/15/17 09:00 09/17/17 13:20 Dextrose IVPB 250 mls/hr BID@0900,2100 ENEDINA Administration Protocol Ondansetron HCl 4 mg 09/11/17 16:47 Zofran Injection IVPUSH Q6H PRN NAUSEA AND/OR VOMITING Laboratory Results - last 24 hr 09/17/17 06:35 Sodium 139 Potassium 4.6 Chloride 106 Carbon Dioxide 28 Anion Gap 5 L BUN 17 D Creatinine 1.1 Random Glucose 102 Calcium 8.9 Microbiology 09/09/17 22:49 Blood - Peripheral Venous Blood Culture - Final NO GROWTH AFTER 5 DAYS INCUBATION 09/09/17 22:49 Blood - Peripheral Venous Blood Culture - Final NO GROWTH AFTER 5 DAYS INCUBATION 09/11/17 19:30 Foot - Right Gram Stain - Final 09/11/17 19:30 Foot - Right Wound Culture - Final Mr S Aureus 09/10/17 09:30 Foot - Right Plantar Gram Stain - Final 09/10/17 09:30 Foot - Right Plantar Wound Culture - Final Mr Godfrey Aureus ASSESSMENT AND PLAN: Right foot MRSA abscess with cellulitis/osteomyelitis with sepsis Improved. Vanco levels discussed with Dr. Amos Agree with Vancomycin 1.5 IV q12h, and outpatient vanco level check tomorrow. home VNS/wound care teaching and wound care/Dr. Prince follow ups arranged d/c home today. Plan discussed with patient and all questions answered.
== END 2017-09-17 18:10 | disposition home health service (06) | DRG 720 ==
LOC: JER 20:57 → JERBED 09-10 01:13 → J5S 09-10 02:59 → J8W 09-11 18:03
PROVIDERS: ADMIT Internal Medicine; ATTEND Hospitalist
PROC: 0J9Q0ZX Drainage of Right Foot Subcutaneous Tissue and Fascia, Open Approach, Diagnostic (ICD-10-PCS; 2017-09-11)
PROC: 02HV33Z Insertion of Infusion Device into Superior Vena Cava, Percutaneous Approach (ICD-10-PCS; principal; 2017-09-11 14:30)
DX: A41.89 Other specified sepsis (principal); L03.115 Cellulitis of right lower limb; B95.62 Methicillin resistant Staphylococcus aureus infection as the cause of diseases classified elsewhere; L02.611 Cutaneous abscess of right foot; R00.0 Tachycardia, unspecified; D72.829 Elevated white blood cell count, unspecified; D72.828 Other elevated white blood cell count; E87.2 Acidosis; M86.8X7 Other osteomyelitis, ankle and foot; R63.0 Anorexia; Z68.30 Body mass index [BMI] 30.0-30.9, adult
CPT/HCPCS: 36415; 36569; 71045-TC-FY; 73700-TC-RT; 73720-TC; 77001-TC-FY; 80048; 80053; 81003; 82009; 82803; 83036; 83605; 83735; 84100; 84484; 85025; 85027; 85610; 85651; 85730; 86140; 87040; 87070; 87186; 87205; 90715; 93005; 93010; 93971-TC; 94760; 97116-GP; 97161-GP; 99282-25; C1751; C1887; G0480; J1644; J7030